=== PATIENT | male | born 1965 | race Caucasian/White ===

== ENCOUNTER 2016-09-08 00:24 | Inpatient (IN) | payer OTHER ==
[~2016-09-08] VITALS: Ht 182.9 cm; Wt 161.1 kg
[~2016-09-08 00:24] MED LIST: ALLO100T PO; ASPEC81 PO; CARV12.5 PO; CITA20TA9 PO; CITA40TA12 PO; CLC100X PO; DLD2 PO; DSY100 PO; ESOM20GR PO; GLC/500 PO; LEVO50TA PO; LISI40TA PO; MORP15TA PO; NCYSR50 PO; SIMV10TA2 PO; TADA10TA PO; TRDI30X IM; XRL10 PO; [UNRECOGNIZED DRUG - CODE] PO
[2016-09-08] MEDS ORDERED: KETOROLAC TROMETHAMINE 30 MG/ML VIAL IV STA (01:14)
[2016-09-08] MEDS ORDERED: CEFTRIAXONE SOD INJ 1 GM ADDVIAL IV STA (01:14)
[2016-09-08] MEDS ORDERED: SODIUM CHLORIDE 0.9% 1000ML 1,000 ML IV ONE (01:15)
[2016-09-08] MEDS ORDERED: TORS100T13 PO (01:48)
[2016-09-08] MEDS ORDERED: HYDR25SU20 PR (01:48)
[2016-09-08] MEDS ORDERED: GLIM1TAB2 PO (01:48)
[2016-09-08] MEDS ORDERED: LSN20 PO (01:48)
[2016-09-08] MEDS ORDERED: LEVO125T72 PO (01:48)
[2016-09-08] MEDS ORDERED: CARV25TA2 PO (01:48)
[2016-09-08] MEDS ORDERED: ATOR-54 PO (01:48)
[2016-09-08] MEDS ORDERED: CYCL10TA6 PO (01:48)
[2016-09-08] MEDS ORDERED: ESOM20CA PO (01:48)
[2016-09-08] MEDS ORDERED: BUPRTAB51 PO (01:48)
[2016-09-08] MEDS ORDERED: BUPRTAB PO (01:48)
[2016-09-08 01:49] LABS: BASO % 0.2 %; BASO ABS # 0.03 K/uL (0-0.2); COMPLETE YES; EOS % 0.1 %; IG% 0.5 %; LYMPH % 8.8 %; LYMPH ABS # 1.13 K/uL (1.2-3.4); MEAN CELL VOLUME 89.9 fL (80-100); MEAN CORPUSCULAR HEMOGLOBIN 32.4 pg (25-34); MEAN CORPUSCULAR HGB CONC 36.1 g/dl (32-36); MEAN PLATELET VOLUME 9.1 fL (7.4-10.4); MONO % 6.8 %; NEUT % 83.6 %; PLATELET COUNT 237 K/uL (130-400); RED BLOOD COUNT 3.67 M/uL (4.7-6.1)
[2016-09-08] MEDS ORDERED: VANCOMYCIN INJ 1,000 MG in SODIUM CHLORIDE 0.9% 250ML 250 ML IV STA (02:02)
[2016-09-08] MEDS ORDERED: PIPERACILLIN/TAZOBACTAM 4.5 GM/100ML D5W IV STA (02:02)
[2016-09-08 02:06] LABS: BUN/CREATININE RATIO 13.1 (10-20); CALCIUM 8.4 mg/dl (8.5-10.1); CREATININE 1.5 mg/dl (0.60-1.40); POTASSIUM 3.5 mmol/L (3.5-5.1)
[2016-09-08 02:09] LABS: ALB/GLOB RATIO 0.8 (0.9-2)
[2016-09-08 02:50] LABS: LYME DISEASE AB IGG NEG (NEG); LYME DISEASE AB IGM NEG (NEG)
[2016-09-08] MEDS ORDERED: GLUCAGON FOR INJ 1 MG VIAL SQ PRN (03:00)
[2016-09-08] MEDS ORDERED: MAGNESIUM HYDROXIDE SUSP 30 ML UDC PO PRN (03:00)
[2016-09-08] MEDS ORDERED: POLYETHYLENE (MIRALAX) 17 GM PACK PO PRN (03:00)
[2016-09-08] MEDS ORDERED: DEXTROSE 50% 50 ML SYR IV PRN (03:00)
[2016-09-08] MEDS ORDERED: ONDANSETRON INJ 2 MG/ML 2 ML VIAL IV PRN (03:00)
[2016-09-08] MEDS ORDERED: ALUMINUM/MAGNESIUM/SIMETH (MAALOX MAX) 30 ML UDC PO PRN (03:00)
[2016-09-08] MEDS ORDERED: GLUCOSE 40% GEL 15 GM TUBE PO PRN (03:00)
[2016-09-08] MEDS ORDERED: GLUCOSE 10 TABS/TUBE PO PRN (03:00)
[2016-09-08 04:20] VITALS: BP 115/73; PULSE 95; TEMP 37.2; O2SAT 96
--- NOTE | 2016-09-08 04:25 | History and Physical ---
History & Physical Date & Time of Service: Sep 08, 2016 at 04:11 Chief Complaint: Rt Leg Burning Primary Care Physician: Feliberto Modi M.D. 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 He thought nothing of it, but then later developed redness, skin tightening, swelling and worsening pain. He presented to the ER; has never had this before; no skin cuts noted by the patient; no pus drainage. States he had some diarrhea Tuesday/ Tuesday (September 05-), but now improved. No fevers/chills. No shortness of breath/ fevers. Past Medical/Surgical History Medical Problems: (1) Dyslipidemia Status: Chronic (2) Essential hypertension Status: Chronic (3) Gout Status: Chronic (4) Hypokalemia Status: Chronic (5) Hypothyroidism Status: Chronic (6) Osteoarthritis Status: Chronic (7) s/p hydrocele repair Status: Resolved (8) s/p vasectomy Status: Resolved Social History Smoking Status: Former Smoker Marital Status: Occupational Status: employed Immunizations History of Influenza Vaccine: Yes Influenza Vaccine Date: Dec 29, 2011 History of Tetanus Vaccine?: Unknown Tetanus Immunization Date: May 05, 2006 History of Pneumococcal: No History of Hepatitis B Vaccine: Unknown Multi-Drug Resistant Organisms History of MDRO: Yes Allergies Coded Allergies: Oxycodone (Verified Adverse Reaction, Unknown, nausea, 09/08/16) Home Medications Scheduled Atorvastatin (Lipitor), 20 MG PO DAILY Bupropion Hcl (Wellbutrin Xl), 150 MG PO DAILY Bupropion Hcl (Wellbutrin Xl), 300 MG PO DAILY Carvedilol (Coreg), 25 MG PO BID Citalopram Hydrobromide (Celexa), 40 MG PO DAILY Esomeprazole Magnesium (Nexium), 20 MG PO DAILY Glimepiride (Glimepiride), 1 MG PO QDB Levothyroxine Sodium (Synthroid), 125 MCG PO DAILY Lisinopril (Lisinopril), 20 MG PO DAILY Metformin Hcl (Glucophage), 500 MG PO BID Torsemide (Demadex), 100 MG PO QAM Scheduled PRN Cyclobenzaprine Hcl (Flexeril), 10 MG PO HS PRN for Muscle Spasms Hydrocortisone Acetate (Rectal (Anusol-Hc), 25 MG [place] BID PRN for Hemorrhoids Review of Systems Constitutional: No fever, No chills, No sweats, No weakness, No fatigue Respiratory: No cough, No sputum, No shortness of breath Cardiovascular: No chest pain, No edema, No palpitations Abdomen: No pain, No nausea, No vomiting, No diarrhea, No constipation, No GI bleeding Musculoskeletal: + joint pain, + muscle pain, + swelling, + calf pain (right lower extremity) Genitourinary - Male: No dysuria, No urinary frequency, No urinary urgency Neurologic: No weakness, No numbness/tingling, No balance problems Psychiatric: No depression symptoms Hematologic / Lymphatic: No abnormal bleeding/bruising Integumentary: + new/changing skin lesions Allergic / Immunologic: No environmental allergies, No seasonal allergies Physical Exam Vital Signs Date Time Temp Pulse Resp B/P (MAP) Pulse Ox O2 Delivery O2 Flow Rate FiO2 09/08/16 03:59 92 20 119/72 95 09/08/16 03:28 96 18 143/68 98 Room Air 09/08/16 02:06 96 18 122/73 95 Room Air 09/08/16 00:33 37.1 106 22 156/91 95 Room Air General Appearance: no apparent distress, + obese Head: normocephalic, atraumatic Eyes: normal inspection ENT: hearing grossly normal Respiratory/Chest: chest non-tender, lungs clear, normal breath sounds, no respiratory distress, no accessory muscle use Cardiovascular: regular rate, rhythm, no edema, no murmur Abdomen/GI: normal bowel sounds, non tender, soft Extremities/Musculoskelatal: + swelling, + pertinent finding (R lower extremity swelling; erythema below the knee to the ankle. edematous; skin tightening; mild tenderness to touch) Neurologic/Psych: no motor/sensory deficits, alert, normal mood/affect Skin: normal color Lymphatic: no adenopathy Diagnostics Laboratory Results Results Past 24 Hours Test 09/08/16 01:39 09/08/16 01:40 Range/Units Bedside Lactic Acid Venous 2.22 0.90-1.70 mmol/L White Blood Count 12.80 4.8-10.8 K/uL Red Blood Count 3.67 4.7-6.1 M/uL Hemoglobin 11.9 14.0-18.0 g/dL Hematocrit 33.0 42-52 % Mean Corpuscular Volume 89.9 80-100 fL Mean Corpuscular Hemoglobin 32.4 25-34 pg Mean Corpuscular Hemoglobin Concent 36.1 32-36 g/dl Platelet Count 237 130-400 K/uL Mean Platelet Volume 9.1 7.4-10.4 fL Neutrophils (%) (Auto) 83.6 % Lymphocytes (%) (Auto) 8.8 % Monocytes (%) (Auto) 6.8 % Eosinophils (%) (Auto) 0.1 % Basophils (%) (Auto) 0.2 % Neutrophils # (Auto) 10.69 1.4-6.5 K/uL Lymphocytes # (Auto) 1.13 1.2-3.4 K/uL Monocytes # (Auto) 0.87 0.11-0.59 K/uL Eosinophils # (Auto) 0.01 0-0.5 K/uL Basophils # (Auto) 0.03 0-0.2 K/uL RDW Standard Deviation 44.8 36.4-46.3 fL RDW Coefficient of Variation 13.6 11.5-14.5 % Immature Granulocyte % (Auto) 0.5 % Immature Granulocyte # (Auto) 0.07 0.00-0.02 K/uL Sodium Level 133 136-145 mmol/L Potassium Level 3.5 3.5-5.1 mmol/L Chloride Level 97 98-107 mmol/L Carbon Dioxide Level 26 21-32 mmol/L Anion Gap 10.0 3-11 mmol/L Blood Urea Nitrogen 20 7-18 mg/dl Creatinine 1.50 0.60-1.40 mg/dl Est Creatinine Clear Calc Drug Dose 91.0 ml/min Estimated GFR () 61.6 Estimated GFR (Non- 53.1 BUN/Creatinine Ratio 13.1 10-20 Random Glucose 200 70-99 mg/dl Calcium Level 8.4 8.5-10.1 mg/dl Total Bilirubin 0.9 0.2-1 mg/dl Aspartate Amino Transf (AST/SGOT) 32 15-37 U/L Alanine Aminotransferase (ALT/SGPT) 38 12-78 U/L Alkaline Phosphatase 61 45-117 U/L Total Protein 7.8 6.4-8.2 gm/dl Albumin 3.4 3.4-5.0 gm/dl Globulin 4.4 2.5-4.0 gm/dl Albumin/Globulin Ratio 0.8 0.9-2 Lyme Disease IgG Antibody NEG NEG Lyme Disease IgM Antibody NEG NEG Microbiology Results 09/08/16 Blood Culture, Received Pending 09/08/16 Blood Culture, Received Pending Impression Assessment and Plan This is a 51 year old obese male with a PMH of DM2, HTN, HLD, hypothyroidism, depression/anxiety presents with cellulitis Nonpurulent Cellulitis of the R LE blood cultures pending WBC slightly elevated, lactic acid > 2 IVFs Vancomycin (hx. of MRSA colonization) repeat lactic acid Acute Kidney Injury recent diarrhea; possible viral gastroenteritis creatinine up to 1.5 given 1L of IVFs NS @ 80mL/hr; monitor creat and avoid nephrotoxic agents if able DM2 hold oral agents insulin sliding scale recheck Ha1c HTN hold lisinopril due to KATI monitor blood pressure Hypothyroidism continue Synthroid DVT ppx subq heparin FULL CODE VTE Prophylaxis VTE Risk Assessment Done? Y/N: Yes Risk Level: Moderate
[2016-09-08 04:41] VITALS: BMI 47.7
[2016-09-08] MEDS ORDERED: VANCOMYCIN CONSULT ACTIVE PRN (04:45)
[2016-09-08] MEDS: SODIUM CHLORIDE 0.9% 1000ML 1,000 ML IV SCH ×2 (05:23→17:34)
[2016-09-08] MEDS ORDERED: VANCOMYCIN INJ 2,000 MG in SODIUM CHLORIDE 0.9% 500ML 500 ML IV SCH (05:30)
[2016-09-08] MEDS ORDERED: VANCOMYCIN INJ 2,800 MG in SODIUM CHLORIDE 0.9% 500ML 500 ML IV SCH (05:30)
[2016-09-08 05:47] LABS: INR 1.1 (0.9-1.1)
[2016-09-08 05:47] LABS: CREATININE 1.5 mg/dl (0.60-1.40)
[2016-09-08] MEDS: LEVOTHYROXINE 125 MCG TAB PO SCH (05:47)
--- NOTE | 2016-09-08 06:19 | EMERGENCY ROOM VISIT NOTE ---
History First contact with patient: :06 Chief Complaint: LEG PAIN,LEG INJURY Stated Complaint: CELLULITIS History of Present Illness The patient is a 51 year old male who presents to the Emergency Room with complaints of pain and swelling to his right lower leg. The patient is a diabetic and states that about 12 hours ago he had a little bit of pain in the right ankle. He states that over the past several hours the pain has developed into redness that is essentially entirety of the right lower leg between the right knee and right ankle. The patient does not have fever or chills. No chest pain, chest tightness, or shortness of breath. He does not have a history of DVT or PE. 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 He rates his discomfort a 5/10 and has not taken anything over-the- counter for his symptoms. Review of Systems More than 10 systems were reviewed and otherwise negative with the exception of history of present illness. Past Medical/Surgical History Medical Problems: (1) Cellulitis (2) Dyslipidemia (3) Essential hypertension (4) Gout (5) Hypokalemia (6) Hypothyroidism (7) Osteoarthritis (8) s/p hydrocele repair (9) s/p vasectomy Family History No pertinent family history Social History Smoking Status: Former Smoker Marital Status: Housing Status: lives with family Occupation Status: employed Current/Historical Medications Scheduled Atorvastatin (Lipitor), 20 MG PO DAILY Bupropion Hcl (Wellbutrin Xl), 150 MG PO DAILY Bupropion Hcl (Wellbutrin Xl), 300 MG PO DAILY Carvedilol (Coreg), 25 MG PO BID Citalopram Hydrobromide (Celexa), 40 MG PO DAILY Esomeprazole Magnesium (Nexium), 20 MG PO DAILY Glimepiride (Glimepiride), 1 MG PO QDB Levothyroxine Sodium (Synthroid), 125 MCG PO DAILY Lisinopril (Lisinopril), 20 MG PO DAILY Metformin Hcl (Glucophage), 500 MG PO BID Torsemide (Demadex), 100 MG PO QAM Scheduled PRN Cyclobenzaprine Hcl (Flexeril), 10 MG PO HS PRN for Muscle Spasms Hydrocortisone Acetate (Rectal (Anusol-Hc), 25 MG [place] BID PRN for Hemorrhoids Allergies Coded Allergies: Oxycodone (Verified Adverse Reaction, Unknown, nausea, 09/08/16) Physical Exam Vital Signs Date Time Temp Pulse Resp B/P (MAP) Pulse Ox O2 Delivery O2 Flow Rate FiO2 09/08/16 02:06 96 18 122/73 95 Room Air 09/08/16 00:33 37.1 106 22 156/91 95 Room Air Pain Rating (0-10): 6.0 Physical Exam VITALS: Vitals are noted on the nurse's note and reviewed by myself. Vital signs with tachycardia GENERAL: Well-developed, well-nourished, white male, who is in no acute distress and resting comfortably. Patient is cooperative with the examination. HEAD: Normocephalic atraumatic. HEART: Tachycardic rate and regular rhythm without murmurs gallops or rubs. LUNGS: Clear to auscultation bilaterally without wheezes, rales or rhonchi. No retractions or accessory muscle use. MUSCULOSKELETAL: Erythema and edema appreciated to the right lower extremity between the right knee and the right ankle. Clinically this is consistent with a cellulitis. There are no ulcerations or evidence of abscess. No palpable cords. Neurovascular status is intact distally. NEURO: Patient was alert and oriented to person place and time. CN II through XII grossly intact. Medical Decision & Procedures ER Provider Diagnostic Interpretation: Preliminary Findings Only See Final Report For Complete Findings US VENOUS RIGHT LOWER EXTREMITY: No evidence of deep vein thrombosis. Laboratory Results 09/08/16 01:40 Red Blood Count 3.67, Mean Corpuscular Volume 89.9, Mean Corpuscular Hemoglobin 32.4, Mean Corpuscular Hemoglobin Concent 36.1, Mean Platelet Volume 9.1, Neutrophils (%) (Auto) 83.6, Lymphocytes (%) (Auto) 8.8, Monocytes (%) (Auto) 6.8, Eosinophils (%) (Auto) 0.1, Basophils (%) (Auto) 0.2, Neutrophils # (Auto) 10.69, Lymphocytes # (Auto) 1.13, Monocytes # (Auto) 0.87, Eosinophils # (Auto) 0.01, Basophils # (Auto) 0.03 09/08/16 01:40 Test 09/08/16 01:39 09/08/16 01:40 Bedside Lactic Acid Venous 2.22 mmol/L (0.90-1.70) White Blood Count 12.80 K/uL (4.8-10.8) Red Blood Count 3.67 M/uL (4.7-6.1) Hemoglobin 11.9 g/dL (14.0-18.0) Hematocrit 33.0 % (42-52) Mean Corpuscular Volume 89.9 fL (80-100) Mean Corpuscular Hemoglobin 32.4 pg (25-34) Mean Corpuscular Hemoglobin Concent 36.1 g/dl (32-36) Platelet Count 237 K/uL (130-400) Mean Platelet Volume 9.1 fL (7.4-10.4) Neutrophils (%) (Auto) 83.6 % Lymphocytes (%) (Auto) 8.8 % Monocytes (%) (Auto) 6.8 % Eosinophils (%) (Auto) 0.1 % Basophils (%) (Auto) 0.2 % Neutrophils # (Auto) 10.69 K/uL (1.4-6.5) Lymphocytes # (Auto) 1.13 K/uL (1.2-3.4) Monocytes # (Auto) 0.87 K/uL (0.11-0.59) Eosinophils # (Auto) 0.01 K/uL (0-0.5) Basophils # (Auto) 0.03 K/uL (0-0.2) RDW Standard Deviation 44.8 fL (36.4-46.3) RDW Coefficient of Variation 13.6 % (11.5-14.5) Immature Granulocyte % (Auto) 0.5 % Immature Granulocyte # (Auto) 0.07 K/uL (0.00-0.02) Anion Gap 10.0 mmol/L (3-11) BUN/Creatinine Ratio 13.1 (10-20) Calcium Level 8.4 mg/dl (8.5-10.1) Total Bilirubin 0.9 mg/dl (0.2-1) Aspartate Amino Transf (AST/SGOT) 32 U/L (15-37) Alanine Aminotransferase (ALT/SGPT) 38 U/L (12-78) Alkaline Phosphatase 61 U/L (45-117) Total Protein 7.8 gm/dl (6.4-8.2) Albumin 3.4 gm/dl (3.4-5.0) Globulin 4.4 gm/dl (2.5-4.0) Albumin/Globulin Ratio 0.8 (0.9-2) Lyme Disease IgG Antibody NEG (NEG) Lyme Disease IgM Antibody NEG (NEG) Medications Administered Medications (Trade) Dose Ordered Sig/Yuliana Route Start Time Stop Time Status Last Admin Dose Admin Ceftriaxone Sodium (Rocephin Inj) 1 gm NOW STAT IV 09/08/16 01:14 09/08/16 01:17 DC 09/08/16 02:00 1 GM Sodium Chloride 1,000 ml @ 999 mls/hr Q1H1M ONCE IV 09/08/16 01:15 09/08/16 02:15 DC 09/08/16 02:01 999 MLS/HR Ketorolac Tromethamine (Toradol Inj) 30 mg NOW STAT IV 09/08/16 01:14 09/08/16 01:17 DC 09/08/16 02:00 30 MG Piperacillin Sod/ Tazobactam Sod (Zosyn Iv) 4.5 gm NOW STAT IV 09/08/16 02:02 09/08/16 02:03 DC 09/08/16 03:17 4.5 GM Vancomycin HCl 1000 mg/Sodium Chloride 270 ml @ 125 mls/hr NOW STAT IV 09/08/16 02:02 09/08/16 04:11 DC 09/08/16 03:21 125 MLS/HR ED Course Physical exam and history were performed. Nursing notes and EMR were reviewed. Patient appears to have a cellulitis of his right lower extremity prompting him to come to the emergency department this evening. IV access was established and labs were obtained. The patient was empirically started on Rocephin here in the department. The patient's blood work is as above and was reviewed. He does have an elevated white blood cell count greater than 12,000. His lactic acid is also elevated. The patient remained with some tachycardia, and there is considerable concern for sepsis. Blood cultures have been obtained and are pending at time of this dictation. The patient was given Zosyn and vancomycin here in the department. An ultrasound was performed and does not show evidence of DVT. Overall the patient does not appear stable for discharge home. The case was discussed with the on-call [facility] hospitalist who agreed to evaluate the patient here in the department for further care and management. Please see their dictation for further patient course, plan, and disposition. The chart was completed utilizing [employer] Speech Voice Recognition Software. Grammatical errors, random word insertions, pronoun errors, and incomplete sentences are an occasional consequence of this system due to software limitations, ambient noise, and hardware issues. Any formal questions or concerns about the content, text, or information contained within the body of this dictation should be directly addressed to the provider for clarification. . Medical Decision Differential diagnosis: Etiologies such as sepsis, UTI, pneumonia, metabolic, electrolyte abnormalities , cardiac sources, intracerebral event, toxicologic, neurologic, as well as others were entertained. Impression Primary Impression: Sepsis Additional Impression: Cellulitis Departure Information Dispostion Still a Patient Condition FAIR Referrals Feliberto Modi M.D. (PCP) Forms HOME CARE DOCUMENTATION FORM, IMPORTANT VISIT INFORMATION Patient Instructions [facility] Problem Qualifiers
--- NOTE | 2016-09-08 06:36 | DIAGNOSTIC IMAGING REPORT ---
ULTRASOUND RIGHT VENOUS DOPP LOWER EXT UNILAT CLINICAL HISTORY: Right lower extremity edema COMPARISON STUDY: 04/02/2012 FINDINGS: Real-time and color flow Doppler imaging were performed. Flow was seen within the femoral, popliteal and calf veins with no intraluminal thrombus demonstrated. The saphenous vein is patent. IMPRESSION: No evidence of right lower extremity DVT. Electronically signed by: Ray Brush M.D. 09/08/2016 6:35 AM Dictated Date/Time: 09/08/2016 6:35 AM
[2016-09-08 07:39] VITALS: BP 125/78; PULSE 90; TEMP 37; O2SAT 97
[2016-09-08 07:45] VITALS: BP 125/78; PULSE 90; TEMP 37; O2SAT 97
[2016-09-08] MEDS ORDERED: PNEUMOCOCCAL POLYSACCHARIDES 25 MCG/0.5 ML VIAL/SYR IM. ONE (08:00)
[2016-09-08] MEDS ORDERED: PNEUMOCOCCAL ADMINISTRATION CHARGE ONE (08:00)
[2016-09-08] MEDS: BuPROPion XL 300 MG TABCR PO SCH (08:39)
[2016-09-08] MEDS: CARVEDILOL 25 MG TAB PO SCH ×2 (08:40→20:22)
[2016-09-08] MEDS: ATORVASTATIN 20 MG TAB PO SCH (08:40)
[2016-09-08] MEDS: BuPROPion XL 150 MG TABCR PO SCH (08:40)
[2016-09-08] MEDS: PANTOprazole SOD 40 MG TAB PO SCH (08:41)
[2016-09-08] MEDS: CITALOPRAM 40 MG TAB PO SCH (08:41)
[2016-09-08] MEDS: INSULIN ASPART 100 UNITS/ML 3 ML PEN SC SCH ×4 (08:50→20:24)
[2016-09-08] MEDS: HEPARIN SOD 5000 UNIT/0.5 ML CARP SQ SCH ×3 (08:51→21:58)
--- NOTE | 2016-09-08 12:28 | Pharmacy Progress Note ---
Pharmacy Abx Initial Consult Date of Service Sep 08, 2016. Pharmacy Dosing Scope Date of Consult: 09/08/16 Consultation requested by: Dr. Shaw Pharmacy is consulted to initiate Vancomycin IV dosing therapy, order appropriate labs and adjust drug dose/frequency. Subjective The patient is a 51 year old male admitted on Sep 08, 2016 at 02:57. Objective Height (Feet): 6 Height (Inches): 0.00 Weight (Kilograms): 159.500 Vital Signs (Past 12Hrs) Vital Signs Past 12 Hours Date Time Temp Pulse Resp B/P (MAP) Pulse Ox O2 Delivery O2 Flow Rate FiO2 09/08/16 08:50 Room Air 09/08/16 07:45 37.0 90 16 125/78 (94) 97 09/08/16 07:39 37.0 90 16 125/78 (94) 97 09/08/16 04:41 Room Air 09/08/16 04:20 37.2 95 16 115/73 (87) 96 Room Air 09/08/16 03:59 92 20 119/72 95 09/08/16 03:28 96 18 143/68 98 Room Air 09/08/16 02:06 96 18 122/73 95 Room Air 09/08/16 00:33 37.1 106 22 156/91 95 Room Air Lab Results (24Hrs) Laboratory Tests (24 Hours) Test 09/08/16 01:40 09/08/16 05:08 White Blood Count 12.80 K/uL (4.8-10.8) H Red Blood Count 3.67 M/uL (4.7-6.1) L Hemoglobin 11.9 g/dL (14.0-18.0) L Hematocrit 33.0 % (42-52) L Mean Corpuscular Volume 89.9 fL (80-100) Mean Corpuscular Hemoglobin 32.4 pg (25-34) Mean Corpuscular Hemoglobin Concent 36.1 g/dl (32-36) H Platelet Count 237 K/uL (130-400) Mean Platelet Volume 9.1 fL (7.4-10.4) Neutrophils (%) (Auto) 83.6 % Lymphocytes (%) (Auto) 8.8 % Monocytes (%) (Auto) 6.8 % Eosinophils (%) (Auto) 0.1 % Basophils (%) (Auto) 0.2 % Neutrophils # (Auto) 10.69 K/uL (1.4-6.5) H Lymphocytes # (Auto) 1.13 K/uL (1.2-3.4) L Monocytes # (Auto) 0.87 K/uL (0.11-0.59) H Eosinophils # (Auto) 0.01 K/uL (0-0.5) Basophils # (Auto) 0.03 K/uL (0-0.2) Lactic Acid Level 1.7 mmol/L (0.4-2.0) Micro Results Date/Time Source Procedure Growth Status 09/08/16 01:40 Blood Blood Culture Pending Received 09/08/16 01:30 Blood Blood Culture Pending Received Risk Factors for Resistance * History of MRSA colonization. Assessment & Plan Assessment 51 year old male with Cellulitis in RLE. Plan Vancomycin for treatment of Cellulitis. Vancomycin IV * Loading dose: Total of 3000 mg given in two doses (18.8 mg/kg) * Maintenance dose: 2000 mg IV (12.5 mg/kg) every 12 hours * Estimated P'kinetics: t1/2 = 9 hrs, Ke = 0.077 /hr. * Goal trough level for Cellulitis: 12-17 mcg/mL * Trough Vanco level ordered for 09/09 @ 1800 * A less than traditional dose have been selected due to likelihood of drug accumulation in obese patient. Pharmacy will continue to follow and will adjust dose/frequency as necessary. Thank you.
[2016-09-08 15:50] VITALS: BP 143/87; PULSE 94; TEMP 37.1; O2SAT 93
[2016-09-08] MEDS: VANCOMYCIN INJ 2,000 MG in SODIUM CHLORIDE 0.9% 500ML 500 ML IV SCH (17:34)
--- NOTE | 2016-09-08 18:23 | Progress Note ---
Medicine Progress Note Date & Time of Visit: Sep 08, 2016 at 18:15. Subjective Patient reports feeling better, still has RLE pain/erythema/edema, but feels his skin feels less tight than yesterday. No other complaints. Denies any CP, SOB, N/V, TOBIN, dizziness. No overnight events noted. Objective Last 8 Hrs Date Time Temp Pulse Resp B/P (MAP) Pulse Ox O2 Delivery O2 Flow Rate FiO2 09/08/16 15:50 37.1 94 18 143/87 (105) 93 Room Air 09/08/16 15:14 Room Air Physical Exam: GENERAL: Patient is in no acute distress. HEENT: No acute trauma, normocephalic, mucous membranes moist, no nasal congestion, no scleral icterus. NECK: No stridor, trachea is midline. LUNGS: Clear to auscultation bilaterally, no wheeze, no rhonchi, breath sounds equal. HEART: Without murmurs gallops or rubs, regular rate and rhythm. ABDOMEN: Soft, nontender, bowel sounds positive EXTREMITIES: No cyanosis; RLE erythematous, warm, tender, + edema in both LE, R> L NEUROLOGIC: Oriented x 3, no acute motor or sensory deficits, no focal weakness. SKIN: No rash, no jaundice, no diaphoresis. Laboratory Results: Last 24 Hours Test 09/08/16 01:39 09/08/16 01:40 09/08/16 05:08 09/08/16 05:23 Bedside Lactic Acid Venous 2.22 mmol/L White Blood Count 12.80 K/uL Red Blood Count 3.67 M/uL Hemoglobin 11.9 g/dL Hematocrit 33.0 % Mean Corpuscular Volume 89.9 fL Mean Corpuscular Hemoglobin 32.4 pg Mean Corpuscular Hemoglobin Concent 36.1 g/dl Platelet Count 237 K/uL Mean Platelet Volume 9.1 fL Neutrophils (%) (Auto) 83.6 % Lymphocytes (%) (Auto) 8.8 % Monocytes (%) (Auto) 6.8 % Eosinophils (%) (Auto) 0.1 % Basophils (%) (Auto) 0.2 % Neutrophils # (Auto) 10.69 K/uL Lymphocytes # (Auto) 1.13 K/uL Monocytes # (Auto) 0.87 K/uL Eosinophils # (Auto) 0.01 K/uL Basophils # (Auto) 0.03 K/uL RDW Standard Deviation 44.8 fL RDW Coefficient of Variation 13.6 % Immature Granulocyte % (Auto) 0.5 % Immature Granulocyte # (Auto) 0.07 K/uL Sodium Level 133 mmol/L Potassium Level 3.5 mmol/L Chloride Level 97 mmol/L Carbon Dioxide Level 26 mmol/L Anion Gap 10.0 mmol/L Blood Urea Nitrogen 20 mg/dl Creatinine 1.50 mg/dl 1.50 mg/dl Est Creatinine Clear Calc Drug Dose 91.0 ml/min 91.0 ml/min Estimated GFR () 61.6 61.6 Estimated GFR (Non- 53.1 53.1 BUN/Creatinine Ratio 13.1 Random Glucose 200 mg/dl Calcium Level 8.4 mg/dl Total Bilirubin 0.9 mg/dl Aspartate Amino Transf (AST/SGOT) 32 U/L Alanine Aminotransferase (ALT/SGPT) 38 U/L Alkaline Phosphatase 61 U/L Total Protein 7.8 gm/dl Albumin 3.4 gm/dl Globulin 4.4 gm/dl Albumin/Globulin Ratio 0.8 Lyme Disease IgG Antibody NEG Lyme Disease IgM Antibody NEG Lactic Acid Level 1.7 mmol/L Prothrombin Time 12.0 SECONDS Prothromb Time International Ratio 1.1 Test 09/08/16 07:57 09/08/16 11:37 09/08/16 16:40 Bedside Glucose 230 mg/dl 224 mg/dl 215 mg/dl Date/Time Source Procedure Growth Status 09/08/16 01:40 Blood Blood Culture Pending Received 09/08/16 01:30 Blood Blood Culture Pending Received Assessment & Plan See H&P from this AM for more details RLE Nonpurulent Cellulitis: -patient nasal MRSA positive -continued on Vancomycin -elevate RLE when at rest -per patient, the edema is improving -can likely D/C IV fluids if PO intake adequate -BP and renal function stable/improved KATI -recent diarrhea; possible viral gastroenteritis -creatinine up to 1.5 -continue IV fluids -avoid nephrotoxic agents DM Type II: -hold oral meds -insulin sliding scale while inpt -check HbA1c HTN: -held lisinopril due to KATI -monitor BP Hypothyroidism: -continue Synthroid DVT Prophylaxis: -on subcutaneous heparin Current Inpatient Medications: Current Inpatient Medications Medications (Trade) Dose Ordered Sig/Yuliana Route Start Time Stop Time Status Last Admin Dose Admin Heparin Sodium (Porcine) (Heparin Sq 5000 Unit/0.5ml) 5,000 unit Q8H SQ 09/08/16 06:00 10/08/16 05:59 09/08/16 16:43 5,000 UNIT Acetaminophen (Tylenol Tab) 650 mg Q4H PRN PO 09/08/16 03:00 10/08/16 02:59 Al Hydrox/Mg Hydrox/Simethicone (Maalox Max Susp) 15 ml Q4H PRN PO 09/08/16 03:00 10/08/16 02:59 Magnesium Hydroxide (Milk Of Magnesia Susp) 30 ml Q6H PRN PO 09/08/16 03:00 10/08/16 02:59 Polyethylene (Miralax Powder Packet) 17 gm DAILY PRN PO 09/08/16 03:00 10/08/16 02:59 Ondansetron HCl (Zofran Inj) 4 mg Q6H PRN IV 09/08/16 03:00 10/08/16 02:59 Insulin Aspart (novoLOG ASPART) SLIDING SCALE If C... ACHS SC 09/08/16 06:30 10/08/16 06:59 09/08/16 17:43 4 UNITS Glucose (Glucose 40% Gel) 15-30 GRAMS 15 GRAMS... UD PRN PO 09/08/16 03:00 10/08/16 02:59 Glucose (Glucose Chew Tab) 4-8 Tablets 4 Tabl... UD PRN PO 09/08/16 03:00 10/08/16 02:59 Dextrose (Dextrose 50% 50ML Syringe) 25-50ML OF 50% DW IV FOR... UD PRN IV 09/08/16 03:00 10/08/16 02:59 Glucagon (Glucagon Inj) 1 mg UD PRN SQ 09/08/16 03:00 10/08/16 02:59 Atorvastatin Calcium (Lipitor Tab) 20 mg DAILY PO 09/08/16 08:00 10/08/16 08:59 09/08/16 08:40 20 MG Bupropion HCl (Wellbutrin-Xl Tab) 150 mg DAILY PO 09/08/16 08:00 10/08/16 08:59 09/08/16 08:40 150 MG Bupropion HCl (Wellbutrin-Xl Tab) 300 mg DAILY PO 09/08/16 08:00 10/08/16 08:59 09/08/16 08:39 300 MG Carvedilol (Coreg Tab) 25 mg BID PO 09/08/16 08:00 10/08/16 08:59 09/08/16 08:40 25 MG Citalopram Hydrobromide (celeXA TAB) 40 mg DAILY PO 09/08/16 08:00 10/08/16 08:59 09/08/16 08:41 40 MG Levothyroxine Sodium (Synthroid Tab) 125 mcg DAILYBB PO 09/08/16 06:30 10/08/16 06:29 09/08/16 05:47 125 MCG Pantoprazole Sodium (Protonix Tab) 40 mg QAM PO 09/08/16 08:00 10/08/16 07:59 09/08/16 08:41 40 MG Sodium Chloride 1,000 ml @ 80 mls/hr [id number] IV 09/08/16 05:00 10/08/16 04:59 09/08/16 17:34 80 MLS/HR Vancomycin HCl (Consult) 1 ea UD PRN N/A 09/08/16 04:45 10/08/16 04:44 Vancomycin HCl 2000 mg/Sodium Chloride 540 ml @ 200 mls/hr Q12H IV 09/08/16 18:00 09/18/16 17:59 09/08/16 17:34 200 MLS/HR
[2016-09-08] MEDS ORDERED: KETOROLAC TROMETHAMINE 15 MG/ML VIAL IV ONE (19:45)
[2016-09-08 20:20] VITALS: BP 161/72; PULSE 93
[2016-09-08 23:20] VITALS: BP 132/82; PULSE 79; TEMP 36.9; O2SAT 93
[2016-09-09] MEDS: LEVOTHYROXINE 125 MCG TAB PO SCH (06:12)
[2016-09-09] MEDS: VANCOMYCIN INJ 2,000 MG in SODIUM CHLORIDE 0.9% 500ML 500 ML IV SCH ×2 (06:18→18:08)
[2016-09-09] MEDS: SODIUM CHLORIDE 0.9% 1000ML 1,000 ML IV SCH (06:19)
[2016-09-09] MEDS: HEPARIN SOD 5000 UNIT/0.5 ML CARP SQ SCH ×3 (06:19→21:28)
[2016-09-09 06:40] LABS: HEMATOCRIT 29.6 % (42-52); MEAN CELL VOLUME 90.2 fL (80-100); MEAN CORPUSCULAR HEMOGLOBIN 31.7 pg (25-34); MEAN CORPUSCULAR HGB CONC 35.1 g/dl (32-36); MEAN PLATELET VOLUME 9.2 fL (7.4-10.4); PLATELET COUNT 200 K/uL (130-400); RED BLOOD COUNT 3.28 M/uL (4.7-6.1); WHITE BLOOD COUNT 7.01 K/uL (4.8-10.8)
[2016-09-09 07:06] LABS: ESTIMATED AVERAGE GLUCOSE 160 mg/dl; HA1C FLAG Normal (Normal)
[2016-09-09 07:08] LABS: BUN/CREATININE RATIO 15.2 (10-20); CALCIUM 8.1 mg/dl (8.5-10.1); CREATININE 1.2 mg/dl (0.60-1.40); POTASSIUM 3.7 mmol/L (3.5-5.1)
[2016-09-09 08:01] VITALS: BP 131/78; PULSE 89; TEMP 37.1; O2SAT 99
[2016-09-09 08:23] VITALS: BP 143/88; PULSE 91
[2016-09-09] MEDS: CARVEDILOL 25 MG TAB PO SCH ×2 (08:24→19:34)
[2016-09-09] MEDS: ATORVASTATIN 20 MG TAB PO SCH (08:24)
[2016-09-09] MEDS: BuPROPion XL 150 MG TABCR PO SCH (08:24)
[2016-09-09] MEDS: PANTOprazole SOD 40 MG TAB PO SCH (08:24)
[2016-09-09] MEDS: CITALOPRAM 40 MG TAB PO SCH (08:24)
[2016-09-09] MEDS: BuPROPion XL 300 MG TABCR PO SCH (08:24)
[2016-09-09] MEDS: INSULIN ASPART 100 UNITS/ML 3 ML PEN SC SCH ×4 (08:29→21:28)
[2016-09-09] MEDS: ACETAMINOPHEN 325 MG TAB PO PRN ×2 (10:24→16:11)
[2016-09-09] MEDS: TRAMADOL HCL 50 MG TAB PO PRN ×3 (13:14→22:22)
[2016-09-09 15:29] VITALS: BP 135/88; PULSE 84; TEMP 37; O2SAT 96
[2016-09-09] MEDS ORDERED: VANCOMYCIN TROUGH SCH (17:30)
--- NOTE | 2016-09-09 17:42 | DIAGNOSTIC IMAGING REPORT ---
ULTRASOUND LEFT VENOUS DOPP LOWER EXT UNILAT CLINICAL HISTORY: Left leg pain and swelling COMPARISON STUDY: 04/02/2012 FINDINGS: Real-time and color flow Doppler imaging were performed. Flow was seen within the femoral, popliteal and calf veins with no intraluminal thrombus demonstrated. The saphenous vein is patent. There is prominent pulsatility within the left common femoral vein. This could indicate elevated right heart pressures. IMPRESSION: No evidence of left lower extremity DVT. Electronically signed by: Ray Brush M.D. 09/09/2016 5:41 PM Dictated Date/Time: 09/09/2016 5:40 PM
--- NOTE | 2016-09-09 18:21 | Progress Note ---
Medicine Progress Note Date & Time of Visit: Sep 09, 2016 at 18:21. Subjective Patient denies any new complaints. Said he felt "uneasy" and "strange" earlier but cannot elaborate further. Denies any CP, SOB, palpitations, N/V/D, TOBIN, dizziness or lightheadedness. No overnight events noted. Tolerating PO. RLE pain and redness are slightly better, but not to a significant degree. Objective Last 8 Hrs Date Time Temp Pulse Resp B/P (MAP) Pulse Ox O2 Delivery O2 Flow Rate FiO2 09/09/16 16:00 Room Air 09/09/16 15:29 37.0 84 18 135/88 (104) 96 Room Air Physical Exam: GENERAL: Patient is in no acute distress. HEENT: No acute trauma, normocephalic, mucous membranes moist, no nasal congestion, no scleral icterus. NECK: No stridor, trachea is midline. LUNGS: Clear to auscultation bilaterally, no wheeze, no rhonchi, breath sounds equal. HEART: Without murmurs gallops or rubs, regular rate and rhythm. ABDOMEN: Soft, nontender, bowel sounds positive EXTREMITIES: No cyanosis; RLE erythematous, warm, tender, + edema in both LE, R> L NEUROLOGIC: Oriented x 3, no acute motor or sensory deficits, no focal weakness. SKIN: No rash, no jaundice, no diaphoresis. Laboratory Results: Last 24 Hours Test 09/08/16 20:09 09/09/16 05:31 09/09/16 07:49 09/09/16 11:46 Bedside Glucose 230 mg/dl 190 mg/dl 196 mg/dl White Blood Count 7.01 K/uL Red Blood Count 3.28 M/uL Hemoglobin 10.4 g/dL Hematocrit 29.6 % Mean Corpuscular Volume 90.2 fL Mean Corpuscular Hemoglobin 31.7 pg Mean Corpuscular Hemoglobin Concent 35.1 g/dl RDW Standard Deviation 45.4 fL RDW Coefficient of Variation 13.7 % Platelet Count 200 K/uL Mean Platelet Volume 9.2 fL Sodium Level 136 mmol/L Potassium Level 3.7 mmol/L Chloride Level 102 mmol/L Carbon Dioxide Level 27 mmol/L Anion Gap 7.0 mmol/L Blood Urea Nitrogen 18 mg/dl Creatinine 1.20 mg/dl Est Creatinine Clear Calc Drug Dose 113.7 ml/min Estimated GFR () 80.7 Estimated GFR (Non- 69.6 BUN/Creatinine Ratio 15.2 Random Glucose 209 mg/dl Estimated Average Glucose 160 mg/dl Hemoglobin A1c 7.2 % Calcium Level 8.1 mg/dl Test 09/09/16 16:40 09/09/16 17:50 Bedside Glucose 190 mg/dl Assessment & Plan RLE Nonpurulent Cellulitis: -patient nasal MRSA positive -continued on Vancomycin day# 2 -elevate RLE when at rest -per patient, the edema is improving -can likely D/C IV fluids if PO intake adequate -BP and renal function stable/improved -B/L LE dopplers are negative KATI -recent diarrhea; possible viral gastroenteritis -creatinine was up to 1.5-->1.2 -on IV fluids; will stop as patient is taking in PO and has no diarrhea -avoid nephrotoxic agents DM Type II: -hold oral meds -insulin sliding scale while inpt -HbA1c: 7.2% HTN: -held lisinopril due to KATI -monitor BP Hypothyroidism: -continue Synthroid DVT Prophylaxis: -on subcutaneous heparin Current Inpatient Medications: Current Inpatient Medications Medications (Trade) Dose Ordered Sig/Yuliana Route Start Time Stop Time Status Last Admin Dose Admin Heparin Sodium (Porcine) (Heparin Sq 5000 Unit/0.5ml) 5,000 unit Q8H SQ 09/08/16 06:00 10/08/16 05:59 09/09/16 13:36 5,000 UNIT Acetaminophen (Tylenol Tab) 650 mg Q4H PRN PO 09/08/16 03:00 10/08/16 02:59 09/09/16 16:11 650 MG Al Hydrox/Mg Hydrox/Simethicone (Maalox Max Susp) 15 ml Q4H PRN PO 09/08/16 03:00 10/08/16 02:59 Magnesium Hydroxide (Milk Of Magnesia Susp) 30 ml Q6H PRN PO 09/08/16 03:00 10/08/16 02:59 Polyethylene (Miralax Powder Packet) 17 gm DAILY PRN PO 09/08/16 03:00 10/08/16 02:59 Ondansetron HCl (Zofran Inj) 4 mg Q6H PRN IV 09/08/16 03:00 10/08/16 02:59 Insulin Aspart (novoLOG ASPART) SLIDING SCALE If C... ACHS SC 09/08/16 06:30 10/08/16 06:59 09/09/16 12:21 3 UNITS Glucose (Glucose 40% Gel) 15-30 GRAMS 15 GRAMS... UD PRN PO 09/08/16 03:00 10/08/16 02:59 Glucose (Glucose Chew Tab) 4-8 Tablets 4 Tabl... UD PRN PO 09/08/16 03:00 10/08/16 02:59 Dextrose (Dextrose 50% 50ML Syringe) 25-50ML OF 50% DW IV FOR... UD PRN IV 09/08/16 03:00 10/08/16 02:59 Glucagon (Glucagon Inj) 1 mg UD PRN SQ 09/08/16 03:00 10/08/16 02:59 Atorvastatin Calcium (Lipitor Tab) 20 mg DAILY PO 09/08/16 08:00 10/08/16 08:59 09/09/16 08:24 20 MG Bupropion HCl (Wellbutrin-Xl Tab) 150 mg DAILY PO 09/08/16 08:00 10/08/16 08:59 09/09/16 08:24 150 MG Bupropion HCl (Wellbutrin-Xl Tab) 300 mg DAILY PO 09/08/16 08:00 10/08/16 08:59 09/09/16 08:24 300 MG Carvedilol (Coreg Tab) 25 mg BID PO 09/08/16 08:00 10/08/16 08:59 09/09/16 08:24 25 MG Citalopram Hydrobromide (celeXA TAB) 40 mg DAILY PO 09/08/16 08:00 10/08/16 08:59 09/09/16 08:24 40 MG Levothyroxine Sodium (Synthroid Tab) 125 mcg DAILYBB PO 09/08/16 06:30 10/08/16 06:29 09/09/16 06:12 125 MCG Pantoprazole Sodium (Protonix Tab) 40 mg QAM PO 09/08/16 08:00 10/08/16 07:59 09/09/16 08:24 40 MG Vancomycin HCl (Consult) 1 ea UD PRN N/A 09/08/16 04:45 10/08/16 04:44 Vancomycin HCl 2000 mg/Sodium Chloride 540 ml @ 200 mls/hr Q12H IV 09/08/16 18:00 09/18/16 17:59 09/09/16 18:08 200 MLS/HR Tramadol HCl (Ultram Tab) 50 mg Q4H PRN PO 09/09/16 12:15 10/09/16 12:14 09/09/16 18:07 50 MG
[2016-09-09] MEDS ORDERED: FUROSEMIDE INJ 20 MG in SYRINGE 0 ML IV ONE (19:00)
[2016-09-09 19:32] VITALS: BP 142/82; PULSE 89; O2SAT 95
--- NOTE | 2016-09-09 21:04 | Pharmacy Progress Note ---
Pharmacy Abx Dose Progress Nt Date of Service Sep 09, 2016. Pharmacy Dosing Scope The patient is currently receiving the following antimicrobial agents per Pharmacy consult: Vancomycin 2000 mg IV every 12 hours Objective Height (Feet): 6 Height (Inches): 0.00 Weight (Kilograms): 159.500 Vital Signs (Past 12Hrs) Vital Signs Past 12 Hours Date Time Temp Pulse Resp B/P (MAP) Pulse Ox O2 Delivery O2 Flow Rate FiO2 09/09/16 19:32 89 142/82 (102) 95 Room Air 09/09/16 16:00 Room Air 09/09/16 15:29 37.0 84 18 135/88 (104) 96 Room Air Lab Results (24Hrs) Laboratory Tests (24 Hours) Test 09/09/16 05:31 White Blood Count 7.01 K/uL (4.8-10.8) Micro Results Date/Time Source Procedure Growth Status 09/08/16 01:40 Blood Blood Culture - Preliminary NO GROWTH TO DATE. Resulted 09/08/16 01:30 Blood Blood Culture - Preliminary NO GROWTH TO DATE. 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 Will likely need to decrease interval if patient is therapeutic in anticipation of accumulation in obese patient. * Goal trough level for Cellulitis : ~15 mcg/mL * Trough level ordered for: 09/10/16 prior to 1800 dose * Less than traditional dose of 12.5mg/kg selected due to likelihood of drug accumulation in obese patient (BMI 47.7kg/m2) Pharmacy will continue to follow and will adjust dose/frequency as necessary. Thank you.
[2016-09-09 23:08] VITALS: BP 125/86; PULSE 83; TEMP 37.2; O2SAT 98
[2016-09-10] MEDS: VANCOMYCIN INJ 2,000 MG in SODIUM CHLORIDE 0.9% 500ML 500 ML IV SCH ×2 (02:05→09:38)
[2016-09-10] MEDS: TRAMADOL HCL 50 MG TAB PO PRN ×2 (04:21→13:10)
[2016-09-10] MEDS: LEVOTHYROXINE 125 MCG TAB PO SCH (06:03)
[2016-09-10] MEDS: HEPARIN SOD 5000 UNIT/0.5 ML CARP SQ SCH ×3 (06:05→19:58)
[2016-09-10 06:57] LABS: HEMATOCRIT 30.5 % (42-52); MEAN CELL VOLUME 89.4 fL (80-100); MEAN CORPUSCULAR HEMOGLOBIN 30.2 pg (25-34); MEAN CORPUSCULAR HGB CONC 33.8 g/dl (32-36); MEAN PLATELET VOLUME 8.9 fL (7.4-10.4); PLATELET COUNT 243 K/uL (130-400); RED BLOOD COUNT 3.41 M/uL (4.7-6.1)
[2016-09-10 07:20] LABS: BUN/CREATININE RATIO 12.1 (10-20); CALCIUM 8.1 mg/dl (8.5-10.1); CREATININE 1.2 mg/dl (0.60-1.40); POTASSIUM 3.8 mmol/L (3.5-5.1)
[2016-09-10 07:28] VITALS: BP 133/98; PULSE 91; TEMP 36.7; O2SAT 96
[2016-09-10 07:31] LABS: FERRITIN 1246.8 ng/ml (8.0-388.0); THYROID STIMULATING HORMONE 3.52 uIu/ml (0.300-4.500)
[2016-09-10] MEDS: CARVEDILOL 25 MG TAB PO SCH ×2 (08:02→19:56)
[2016-09-10] MEDS: CITALOPRAM 40 MG TAB PO SCH (08:02)
[2016-09-10] MEDS: ATORVASTATIN 20 MG TAB PO SCH (08:03)
[2016-09-10] MEDS: PANTOprazole SOD 40 MG TAB PO SCH (08:03)
[2016-09-10] MEDS: BuPROPion XL 150 MG TABCR PO SCH (08:03)
[2016-09-10] MEDS: BuPROPion XL 300 MG TABCR PO SCH (08:04)
[2016-09-10] MEDS: INSULIN ASPART 100 UNITS/ML 3 ML PEN SC SCH ×4 (09:32→19:58)
[2016-09-10 12:28] VITALS: Ht 182.9 cm; Wt 161.1 kg
[2016-09-10] MEDS ORDERED: HYDROCODONE/ACETAMOPHEN 5/325MG TAB PO PRN (14:30)
[2016-09-10] MEDS ORDERED: HYDROCODONE/ACETAMOPHEN 5/325MG TAB ONE (14:32)
[2016-09-10] MEDS ORDERED: GABAPENTIN 100 MG CAP PO ONE (14:45)
[2016-09-10 15:46] VITALS: BP 155/91; PULSE 98; TEMP 36.8; O2SAT 92
[2016-09-10] MEDS ORDERED: HYDROmorphone INJ 0.5 MG/0.5 ML SYR IV STA (16:00)
[2016-09-10] MEDS ORDERED: VANCOMYCIN TROUGH SCH (17:30)
--- NOTE | 2016-09-10 17:48 | DIAGNOSTIC IMAGING REPORT ---
ANKLE BRACHIAL INDEX COMPLETE CLINICAL HISTORY: Peripheral vascular disease COMPARISON STUDY: No previous studies for comparison. FINDINGS: Brachial systolic pressures were 141 mmHg on the right and 152 mmHg on the left. Posterior tibial systolic pressures were 168 mmHg on the right and 180 mmHg on the left. Dorsalis pedis systolic pressures were 152 mmHg on the right and 195 mmHg on the left. This yields normal ankle arm indices of 1.1 on the right and 1.3 on the left. IMPRESSION: Normal bilateral ankle brachial indices. Electronically signed by: Ray Brush M.D. 09/10/2016 5:46 PM Dictated Date/Time: 09/10/2016 5:44 PM
--- NOTE | 2016-09-10 18:04 | Progress Note ---
Medicine Progress Note Date & Time of Visit: Sep 10, 2016 at 18:04. Subjective Patient was doing better but overnight began having excruciating left thigh pain. He describes it as a sharp stabbing pain on his anterior thigh. No trauma or injury to that area. No other events noted. Tolerating PO. RLE improving. Objective Last 8 Hrs Date Time Temp Pulse Resp B/P (MAP) Pulse Ox O2 Delivery O2 Flow Rate FiO2 09/10/16 16:00 Room Air 09/10/16 15:46 36.8 98 18 155/91 (112) 92 Room Air Physical Exam: GENERAL: Patient is in no acute distress. HEENT: No acute trauma, normocephalic, mucous membranes moist, no nasal congestion, no scleral icterus. NECK: No stridor, trachea is midline. LUNGS: Clear to auscultation bilaterally, no wheeze, no rhonchi, breath sounds equal. HEART: Without murmurs gallops or rubs, regular rate and rhythm. ABDOMEN: Soft, nontender, bowel sounds positive EXTREMITIES: No cyanosis; RLE erythematous, warm, tender, + edema in both LE, R> L; patient moving left thigh, mild swelling but no rashes or erythema noted. NEUROLOGIC: Oriented x 3, no acute motor or sensory deficits, no focal weakness. SKIN: No rash, no jaundice, no diaphoresis. Laboratory Results: Last 24 Hours Test 09/09/16 19:58 09/10/16 06:37 09/10/16 07:46 09/10/16 11:56 Bedside Glucose 227 mg/dl 171 mg/dl 221 mg/dl White Blood Count 7.20 K/uL Red Blood Count 3.41 M/uL Hemoglobin 10.3 g/dL Hematocrit 30.5 % Mean Corpuscular Volume 89.4 fL Mean Corpuscular Hemoglobin 30.2 pg Mean Corpuscular Hemoglobin Concent 33.8 g/dl RDW Standard Deviation 44.2 fL RDW Coefficient of Variation 13.5 % Platelet Count 243 K/uL Mean Platelet Volume 8.9 fL Absolute Reticulocyte Count 0.10 10^6/uL Percent Reticulocyte Count 2.9 % Sodium Level 137 mmol/L Potassium Level 3.8 mmol/L Chloride Level 103 mmol/L Carbon Dioxide Level 28 mmol/L Anion Gap 6.0 mmol/L Blood Urea Nitrogen 15 mg/dl Creatinine 1.20 mg/dl Est Creatinine Clear Calc Drug Dose 113.7 ml/min Estimated GFR () 80.7 Estimated GFR (Non- 69.6 BUN/Creatinine Ratio 12.1 Random Glucose 173 mg/dl Calcium Level 8.1 mg/dl Iron Level 39 mcg/dl Total Iron Binding Capacity 223 mcg/dl Transferrin 166 mg/dl Transferrin % Saturation 17 % Ferritin 1246.8 ng/ml Vitamin B12 Level 496 pg/mL Folate 10.64 ng/mL Thyroid Stimulating Hormone (TSH) 3.520 uIu/ml Test 09/10/16 13:05 09/10/16 16:24 09/10/16 17:04 Stool Occult Blood NEGATIVE Bedside Glucose 151 mg/dl Assessment & Plan RLE Nonpurulent Cellulitis: -patient nasal MRSA positive -continued on Vancomycin day# 3 -elevate RLE when at rest -per patient, the edema is improving -can likely D/C IV fluids if PO intake adequate -BP and renal function stable/improved -B/L LE dopplers are negative SEVERE LEFT THIGH PAIN: -LE doppler negative for DVT -checked MINDI; normal 1.1 in both legs -will obtain imaging of left thigh if continues -PRN pain control -start neurontin KATI -recent diarrhea; possible viral gastroenteritis -creatinine was up to 1.5-->1.2 -on IV fluids; will stop as patient is taking in PO and has no diarrhea -avoid nephrotoxic agents DM Type II: -hold oral meds -insulin sliding scale while inpt -HbA1c: 7.2% HTN: -held lisinopril due to KATI -monitor BP Hypothyroidism: -continue Synthroid DVT Prophylaxis: -on subcutaneous heparin Current Inpatient Medications: Current Inpatient Medications Medications (Trade) Dose Ordered Sig/Yuliana Route Start Time Stop Time Status Last Admin Dose Admin Heparin Sodium (Porcine) (Heparin Sq 5000 Unit/0.5ml) 5,000 unit Q8H SQ 09/08/16 06:00 10/08/16 05:59 09/10/16 06:05 5,000 UNIT Acetaminophen (Tylenol Tab) 650 mg Q4H PRN PO 09/08/16 03:00 10/08/16 02:59 09/09/16 16:11 650 MG Al Hydrox/Mg Hydrox/Simethicone (Maalox Max Susp) 15 ml Q4H PRN PO 09/08/16 03:00 10/08/16 02:59 Magnesium Hydroxide (Milk Of Magnesia Susp) 30 ml Q6H PRN PO 09/08/16 03:00 10/08/16 02:59 Polyethylene (Miralax Powder Packet) 17 gm DAILY PRN PO 09/08/16 03:00 10/08/16 02:59 Ondansetron HCl (Zofran Inj) 4 mg Q6H PRN IV 09/08/16 03:00 10/08/16 02:59 Insulin Aspart (novoLOG ASPART) SLIDING SCALE If C... ACHS SC 09/08/16 06:30 10/08/16 06:59 09/10/16 12:44 3 UNITS Glucose (Glucose 40% Gel) 15-30 GRAMS 15 GRAMS... UD PRN PO 09/08/16 03:00 10/08/16 02:59 Glucose (Glucose Chew Tab) 4-8 Tablets 4 Tabl... UD PRN PO 09/08/16 03:00 10/08/16 02:59 Dextrose (Dextrose 50% 50ML Syringe) 25-50ML OF 50% DW IV FOR... UD PRN IV 09/08/16 03:00 10/08/16 02:59 Glucagon (Glucagon Inj) 1 mg UD PRN SQ 09/08/16 03:00 10/08/16 02:59 Atorvastatin Calcium (Lipitor Tab) 20 mg DAILY PO 09/08/16 08:00 10/08/16 08:59 09/10/16 08:03 20 MG Bupropion HCl (Wellbutrin-Xl Tab) 150 mg DAILY PO 09/08/16 08:00 10/08/16 08:59 09/10/16 08:03 150 MG Bupropion HCl (Wellbutrin-Xl Tab) 300 mg DAILY PO 09/08/16 08:00 10/08/16 08:59 09/10/16 08:04 300 MG Carvedilol (Coreg Tab) 25 mg BID PO 09/08/16 08:00 10/08/16 08:59 09/10/16 08:02 25 MG Citalopram Hydrobromide (celeXA TAB) 40 mg DAILY PO 09/08/16 08:00 10/08/16 08:59 09/10/16 08:02 40 MG Levothyroxine Sodium (Synthroid Tab) 125 mcg DAILYBB PO 09/08/16 06:30 10/08/16 06:29 09/10/16 06:03 125 MCG Pantoprazole Sodium (Protonix Tab) 40 mg QAM PO 09/08/16 08:00 10/08/16 07:59 09/10/16 08:03 40 MG Gabapentin (Neurontin Cap) 100 mg TID PO 09/10/16 20:00 10/10/16 19:59 Ferrous Sulfate (Feosol Tab) 325 mg BIDM PO 09/10/16 17:00 10/10/16 16:59 Clindamycin Phosphate 900 mg/ Dextrose 106 ml @ 100 mls/hr Q8H IV 09/10/16 18:00 09/20/16 17:59 Hydromorphone HCl (Dilaudid Inj) 1 mg Q4 PRN IV 09/10/16 17:15 09/24/16 17:14
[2016-09-10] MEDS: FERROUS SULFATE 325 MG TAB PO SCH (18:08)
[2016-09-10] MEDS: CLINDAMYCIN IV 900 MG in DEXTROSE 5% 100ML 100 ML IV SCH (18:08)
[2016-09-10 19:55] VITALS: BP 162/96; PULSE 91
[2016-09-10] MEDS: GABAPENTIN 100 MG CAP PO SCH (19:56)
[2016-09-10 23:48] VITALS: BP 180/83; PULSE 93; TEMP 37.7; O2SAT 91
[2016-09-11] MEDS: CLINDAMYCIN IV 900 MG in DEXTROSE 5% 100ML 100 ML IV SCH ×4 (01:52→18:03)
[2016-09-11 05:30] LABS: BASO % 0.2 %; BASO ABS # 0.02 K/uL (0-0.2); COMPLETE YES; EOS % 0.7 %; HEMATOCRIT 30.1 % (42-52); IG% 0.8 %; LYMPH ABS # 1.01 K/uL (1.2-3.4); MEAN CELL VOLUME 89.1 fL (80-100); MEAN CORPUSCULAR HEMOGLOBIN 29.9 pg (25-34); MEAN CORPUSCULAR HGB CONC 33.6 g/dl (32-36); MEAN PLATELET VOLUME 8.6 fL (7.4-10.4); NEUT % 80.3 %; PLATELET COUNT 279 K/uL (130-400); RED BLOOD COUNT 3.38 M/uL (4.7-6.1); WHITE BLOOD COUNT 10.05 K/uL (4.8-10.8)
[2016-09-11] MEDS: HYDROmorphone INJ 1 MG/ML SYR IV PRN ×5 (05:40→20:51)
[2016-09-11] MEDS: LEVOTHYROXINE 125 MCG TAB PO SCH (05:40)
[2016-09-11] MEDS: HEPARIN SOD 5000 UNIT/0.5 ML CARP SQ SCH ×3 (05:41→20:55)
[2016-09-11 05:57] LABS: BUN/CREATININE RATIO 10.2 (10-20); CALCIUM 8.2 mg/dl (8.5-10.1); CREATININE 1.1 mg/dl (0.60-1.40)
[2016-09-11 07:07] VITALS: BP 174/95; PULSE 91; TEMP 36.7; O2SAT 95
[2016-09-11] MEDS: INSULIN ASPART 100 UNITS/ML 3 ML PEN SC SCH ×4 (08:25→20:56)
[2016-09-11] MEDS: FERROUS SULFATE 325 MG TAB PO SCH ×2 (08:26→16:42)
[2016-09-11] MEDS: CITALOPRAM 40 MG TAB PO SCH (08:26)
[2016-09-11] MEDS: CARVEDILOL 25 MG TAB PO SCH ×2 (08:26→20:54)
[2016-09-11] MEDS: PANTOprazole SOD 40 MG TAB PO SCH (08:27)
[2016-09-11] MEDS: ATORVASTATIN 20 MG TAB PO SCH (08:27)
[2016-09-11] MEDS: GABAPENTIN 100 MG CAP PO SCH ×3 (08:27→20:52)
[2016-09-11] MEDS: BuPROPion XL 300 MG TABCR PO SCH (08:28)
[2016-09-11] MEDS: BuPROPion XL 150 MG TABCR PO SCH (08:28)
[2016-09-11] MEDS ORDERED: OPTIRAY 320 IV PRN (08:30)
--- NOTE | 2016-09-11 09:28 | DIAGNOSTIC IMAGING REPORT ---
CT LEFT THIGH WITH CONTRAST CT DOSE: 1214.04 mGy.cm CLINICAL HISTORY: Severe left thigh pain. Possible hematoma. TECHNIQUE: Helical images were acquired in transverse plane. The patient was administered 1 20 cc of Optiray 320. COMPARISON STUDY: None. FINDINGS: There is small fat-containing left inguinal hernia. There is mild subcutaneous edema. No soft tissue masses are visualized. There is no evidence for hematoma. There are no fractures. No bony destructive lesions are evident. IMPRESSION: 1. No evidence of acute fracture 2. No destructive lesions are visualized 3. No evidence of thigh hematoma 4. Mild subcutaneous edema Electronically signed by: Ray Brush M.D. 09/11/2016 9:27 AM Dictated Date/Time: 09/11/2016 9:24 AM
[2016-09-11] MEDS ORDERED: FUROSEMIDE 40 MG/4 ML VIAL IV STA (15:12)
[2016-09-11] MEDS ORDERED: FUROSEMIDE INJ 40 MG in SYRINGE 0 ML IV ONE (15:45)
[2016-09-11 16:02] VITALS: BP 165/90; PULSE 96; TEMP 37.3; O2SAT 91
--- NOTE | 2016-09-11 18:34 | Progress Note ---
Medicine Progress Note Date & Time of Visit: Sep 11, 2016 at 18:34. Subjective Patient still complaining of excruciating left thigh pain. States he was ok overnight but then this AM it started again. No pain else where. Tolerating PO. Has been ambulating in room. was at the bedside and updated. Objective Last 8 Hrs Date Time Temp Pulse Resp B/P (MAP) Pulse Ox O2 Delivery O2 Flow Rate FiO2 09/11/16 16:02 37.3 96 20 165/90 (115) 91 Room Air 09/11/16 16:00 Room Air Physical Exam: GENERAL: Patient is in no acute distress. HEENT: No acute trauma, normocephalic, mucous membranes moist, no nasal congestion, no scleral icterus. NECK: No stridor, trachea is midline. LUNGS: Clear to auscultation bilaterally, no wheeze, no rhonchi, breath sounds equal. HEART: Without murmurs gallops or rubs, regular rate and rhythm. ABDOMEN: Soft, nontender, bowel sounds positive EXTREMITIES: No cyanosis; RLE erythema improving, warm, tender, + pitting edema in both LE, R>L; patient moving left thigh, pain in the anterior thigh, mild swelling but no rashes or erythema noted. NEUROLOGIC: Oriented x 3, no acute motor or sensory deficits, no focal weakness. SKIN: No rash, no jaundice, no diaphoresis. Laboratory Results: Last 24 Hours Test 09/10/16 19:52 09/11/16 05:12 09/11/16 08:04 09/11/16 11:45 Bedside Glucose 182 mg/dl 185 mg/dl 203 mg/dl White Blood Count 10.05 K/uL Red Blood Count 3.38 M/uL Hemoglobin 10.1 g/dL Hematocrit 30.1 % Mean Corpuscular Volume 89.1 fL Mean Corpuscular Hemoglobin 29.9 pg Mean Corpuscular Hemoglobin Concent 33.6 g/dl Platelet Count 279 K/uL Mean Platelet Volume 8.6 fL Neutrophils (%) (Auto) 80.3 % Lymphocytes (%) (Auto) 10.0 % Monocytes (%) (Auto) 8.0 % Eosinophils (%) (Auto) 0.7 % Basophils (%) (Auto) 0.2 % Neutrophils # (Auto) 8.07 K/uL Lymphocytes # (Auto) 1.01 K/uL Monocytes # (Auto) 0.80 K/uL Eosinophils # (Auto) 0.07 K/uL Basophils # (Auto) 0.02 K/uL RDW Standard Deviation 43.5 fL RDW Coefficient of Variation 13.5 % Immature Granulocyte % (Auto) 0.8 % Immature Granulocyte # (Auto) 0.08 K/uL Sodium Level 136 mmol/L Potassium Level 4.0 mmol/L Chloride Level 101 mmol/L Carbon Dioxide Level 29 mmol/L Anion Gap 6.0 mmol/L Blood Urea Nitrogen 11 mg/dl Creatinine 1.10 mg/dl Est Creatinine Clear Calc Drug Dose 124.0 ml/min Estimated GFR () 89.6 Estimated GFR (Non- 77.3 BUN/Creatinine Ratio 10.2 Random Glucose 187 mg/dl Calcium Level 8.2 mg/dl Test 09/11/16 16:21 Bedside Glucose 183 mg/dl Assessment & Plan RLE Nonpurulent Cellulitis: -patient nasal MRSA positive -continued on Vancomycin for 3 days, now switched to clindamycin -elevate RLE when at rest -per patient, the edema is improving -D/C IV fluids -BP and renal function stable/improved -B/L LE dopplers are negative SEVERE LEFT THIGH PAIN: -LE doppler negative for DVT -checked MINDI; normal 1.1 in both legs -will obtain imaging of left thigh if continues -PRN pain control -start neurontin -CT thigh shows no hematoma, mild soft tissue swelling but otherwise normal -CPK normal KATI -recent diarrhea; possible viral gastroenteritis -creatinine was up to 1.5-->1.2-->1.1 -on IV fluids; stopped as patient is taking in PO -avoid nephrotoxic agents DM Type II: -hold oral meds -insulin sliding scale while inpt -HbA1c: 7.2% HTN: -held lisinopril due to KATI -monitor BP Hypothyroidism: -continue Synthroid DVT Prophylaxis: -on subcutaneous heparin Current Inpatient Medications: Current Inpatient Medications Medications (Trade) Dose Ordered Sig/Yuliana Route Start Time Stop Time Status Last Admin Dose Admin Heparin Sodium (Porcine) (Heparin Sq 5000 Unit/0.5ml) 5,000 unit Q8H SQ 09/08/16 06:00 10/08/16 05:59 09/11/16 14:16 5,000 UNIT Acetaminophen (Tylenol Tab) 650 mg Q4H PRN PO 09/08/16 03:00 10/08/16 02:59 09/09/16 16:11 650 MG Al Hydrox/Mg Hydrox/Simethicone (Maalox Max Susp) 15 ml Q4H PRN PO 09/08/16 03:00 10/08/16 02:59 Magnesium Hydroxide (Milk Of Magnesia Susp) 30 ml Q6H PRN PO 09/08/16 03:00 10/08/16 02:59 Polyethylene (Miralax Powder Packet) 17 gm DAILY PRN PO 09/08/16 03:00 10/08/16 02:59 Ondansetron HCl (Zofran Inj) 4 mg Q6H PRN IV 09/08/16 03:00 10/08/16 02:59 Insulin Aspart (novoLOG ASPART) SLIDING SCALE If C... ACHS SC 09/08/16 06:30 10/08/16 06:59 09/11/16 18:02 1 UNITS Glucose (Glucose 40% Gel) 15-30 GRAMS 15 GRAMS... UD PRN PO 09/08/16 03:00 10/08/16 02:59 Glucose (Glucose Chew Tab) 4-8 Tablets 4 Tabl... UD PRN PO 09/08/16 03:00 10/08/16 02:59 Dextrose (Dextrose 50% 50ML Syringe) 25-50ML OF 50% DW IV FOR... UD PRN IV 09/08/16 03:00 10/08/16 02:59 Glucagon (Glucagon Inj) 1 mg UD PRN SQ 09/08/16 03:00 10/08/16 02:59 Atorvastatin Calcium (Lipitor Tab) 20 mg DAILY PO 09/08/16 08:00 10/08/16 08:59 09/11/16 08:27 20 MG Bupropion HCl (Wellbutrin-Xl Tab) 150 mg DAILY PO 09/08/16 08:00 10/08/16 08:59 09/11/16 08:28 150 MG Bupropion HCl (Wellbutrin-Xl Tab) 300 mg DAILY PO 09/08/16 08:00 10/08/16 08:59 09/11/16 08:28 300 MG Carvedilol (Coreg Tab) 25 mg BID PO 09/08/16 08:00 10/08/16 08:59 09/11/16 08:26 25 MG Citalopram Hydrobromide (celeXA TAB) 40 mg DAILY PO 09/08/16 08:00 10/08/16 08:59 09/11/16 08:26 40 MG Levothyroxine Sodium (Synthroid Tab) 125 mcg DAILYBB PO 09/08/16 06:30 10/08/16 06:29 09/11/16 05:40 125 MCG Pantoprazole Sodium (Protonix Tab) 40 mg QAM PO 09/08/16 08:00 10/08/16 07:59 09/11/16 08:27 40 MG Ferrous Sulfate (Feosol Tab) 325 mg BIDM PO 09/10/16 17:00 10/10/16 16:59 09/11/16 16:42 325 MG Clindamycin Phosphate 900 mg/ Dextrose 106 ml @ 100 mls/hr Q8H IV 09/10/16 18:00 09/20/16 17:59 09/11/16 18:03 100 MLS/HR Hydromorphone HCl (Dilaudid Inj) 1 mg Q4 PRN IV 09/10/16 17:15 09/24/16 17:14 09/11/16 16:38 1 MG Ioversol (Optiray 320) 125 ml UD PRN IV 09/11/16 08:30 09/15/16 08:29 Gabapentin (Neurontin Cap) 200 mg TID PO 09/11/16 20:00 10/10/16 19:59
[2016-09-11 20:30] VITALS: BP 145/77; PULSE 88
[2016-09-12] VITALS (7 sets, daily range): BP systolic 125–150; BP diastolic 38–97; PULSE 78–88; TEMP 36.6–36.9; O2SAT 90–94
[2016-09-12] MEDS: CLINDAMYCIN IV 900 MG in DEXTROSE 5% 100ML 100 ML IV SCH ×3 (02:21→17:48)
[2016-09-12] MEDS: HYDROmorphone INJ 1 MG/ML SYR IV PRN ×5 (04:14→22:47)
[2016-09-12] MEDS: LEVOTHYROXINE 125 MCG TAB PO SCH (06:24)
[2016-09-12 06:25] LABS: HEMATOCRIT 30.3 % (42-52); MEAN CELL VOLUME 90.4 fL (80-100); MEAN CORPUSCULAR HGB CONC 34.3 g/dl (32-36); PLATELET COUNT 334 K/uL (130-400); RED BLOOD COUNT 3.35 M/uL (4.7-6.1); WHITE BLOOD COUNT 11.03 K/uL (4.8-10.8)
[2016-09-12] MEDS: HEPARIN SOD 5000 UNIT/0.5 ML CARP SQ SCH ×3 (06:27→21:58)
[2016-09-12 07:14] LABS: BUN/CREATININE RATIO 10.5 (10-20); CALCIUM 8.6 mg/dl (8.5-10.1); CREATININE 1.3 mg/dl (0.60-1.40); POTASSIUM 3.2 mmol/L (3.5-5.1)
[2016-09-12] MEDS: BuPROPion XL 150 MG TABCR PO SCH (08:12)
[2016-09-12] MEDS: BuPROPion XL 300 MG TABCR PO SCH (08:12)
[2016-09-12] MEDS: PANTOprazole SOD 40 MG TAB PO SCH (08:12)
[2016-09-12] MEDS: FERROUS SULFATE 325 MG TAB PO SCH ×2 (08:13→17:49)
[2016-09-12] MEDS: CITALOPRAM 40 MG TAB PO SCH (08:13)
[2016-09-12] MEDS: CARVEDILOL 25 MG TAB PO SCH ×2 (08:13→19:52)
[2016-09-12] MEDS: ATORVASTATIN 20 MG TAB PO SCH (08:13)
[2016-09-12] MEDS: GABAPENTIN 100 MG CAP PO SCH (08:14)
[2016-09-12] MEDS: INSULIN ASPART 100 UNITS/ML 3 ML PEN SC SCH ×4 (08:38→21:57)
--- NOTE | 2016-09-12 12:34 | Psychiatric Consultation ---
Consultation Date of Consultation Sep 12, 2016. Identifying Data Bill Frias is a 51-year-old male w/ hx of depression and episodic anxiety tx by PCP. Chief Complaint "I've been feeling more down for a while now. I asked my primary doctor about it but he said there wasn't much more we could do." History of Present Illness Patient medically admitted for right lower extremity pain. He is being treated for cellulitis. He was noted to have an acute kidney injury, possibly associated with recent diarrhea. Creatinine downtrending. He also has a history of diabetes, hypertension, hypothyroidism, arthritis. He has indicated low mood baseline and requested psychiatric consultation. Patient scored a 13 on phq9 indicating likely minor depression. On interview, patient reports he has been on the Celexa and Wellbutrin combination for many years, prescribed by Dr. Ramos. He does recall a therapeutic benefit, however he feels mood has been declining in recent years, more noticeably in the last several months. He describes multiple chronic stressors including separation from , children with their own problems, work stress. He has been missing more work in the past few months using up vacation time. He denies that his mood gets so bad that he feels hopeless or experiences suicidal ideation or wish. He jokes that he owes too much money to do something like that. He describes decreased interest and motivation but denies rohit anhedonia. He denies excessive anxiety at baseline but does have a distant history of some panic attacks around time of divorce and has experienced a few mild panic attacks in recent months. He is interested in trying an alternative antidepressant and is willing to pursue outpatient mental health follow-up. He previously saw Halle Rolle for counseling and would be willing to return. Past Psychiatric History Prior OP Treatment: therapist Prior Psych Hospitalizations: none Suicide Attempts: Yes Past Medication Trials Celexa and Wellbutrin for years Past Medical/Surgical History Dyslipidemia, hypertension, gout, hypokalemia, hypothyroidism, arthritis, hydrocele repair, cellulitis Allergies Allergies: Coded Allergies: Oxycodone (Verified Adverse Reaction, Unknown, nausea, 09/08/16) Home Medications Scheduled Atorvastatin (Lipitor), 20 MG PO DAILY Bupropion Hcl (Wellbutrin Xl), 150 MG PO DAILY Bupropion Hcl (Wellbutrin Xl), 300 MG PO DAILY Carvedilol (Coreg), 25 MG PO BID Citalopram Hydrobromide (Celexa), 40 MG PO DAILY Esomeprazole Magnesium (Nexium), 20 MG PO DAILY Glimepiride (Glimepiride), 1 MG PO QDB Levothyroxine Sodium (Synthroid), 125 MCG PO DAILY Lisinopril (Lisinopril), 20 MG PO DAILY Metformin Hcl (Glucophage), 500 MG PO BID Torsemide (Demadex), 100 MG PO QAM Scheduled PRN Cyclobenzaprine Hcl (Flexeril), 10 MG PO HS PRN for Muscle Spasms Hydrocortisone Acetate (Rectal (Anusol-Hc), 25 MG [place] BID PRN for Hemorrhoids Family History History of Suicide: No Describes diffuse family history of hyperlipidemia, hypertension, diabetes, obesity. 2 uncles with prostate cancer and sister with breast cancer. Alcohol Use Alcohol Use In Past 12 Months: Yes Drinks about 15 beers per week Smoking Use Smoking Status: Former Smoker Personal History Education: graduated from high school Relationship History: , other (remarried) Children: 4 Legal History: other (bankruptcy) Review of Systems Beyond his cellulitis in lower extreme pain, he denies acute physical complaints on 10 point review of systems other than as above Constitutional: other (low energy) Cardiovascular: reports: no symptoms reported Neurologic: reports: other (denies confusion) Examination Vital Signs Vital Signs Past 12 Hours Date Time Temp Pulse Resp B/P (MAP) Pulse Ox O2 Delivery O2 Flow Rate FiO2 09/12/16 08:30 94 Room Air 09/12/16 07:42 36.6 84 20 131/86 (101) 94 Room Air Laboratory Results Last 24 Hours Test 09/11/16 16:21 09/11/16 20:12 09/12/16 05:04 09/12/16 07:52 Bedside Glucose 183 mg/dl 199 mg/dl 175 mg/dl White Blood Count 11.03 K/uL Red Blood Count 3.35 M/uL Hemoglobin 10.4 g/dL Hematocrit 30.3 % Mean Corpuscular Volume 90.4 fL Mean Corpuscular Hemoglobin 31.0 pg Mean Corpuscular Hemoglobin Concent 34.3 g/dl RDW Standard Deviation 45.2 fL RDW Coefficient of Variation 13.7 % Platelet Count 334 K/uL Mean Platelet Volume 9.0 fL Sodium Level 132 mmol/L Potassium Level 3.2 mmol/L Chloride Level 95 mmol/L Carbon Dioxide Level 26 mmol/L Anion Gap 11.0 mmol/L Blood Urea Nitrogen 14 mg/dl Creatinine 1.30 mg/dl Est Creatinine Clear Calc Drug Dose 104.9 ml/min Estimated GFR () 73.2 Estimated GFR (Non- 63.2 BUN/Creatinine Ratio 10.5 Random Glucose 164 mg/dl Calcium Level 8.6 mg/dl Test 09/12/16 11:38 Bedside Glucose 219 mg/dl Mental Examination During interview pt is: alert and oriented Appearance: disheveled Eye contact is: good Motor behavior is: no abnormal motor movements Speech: normal in rate, rhythm & volume Affect: mood congruent Mood is: other (not terrible but not good) Thought process: goal directed, linear, logical Thought content: reality based without delusions Suicidal thought are: denied, Plan: denied, Intent: denied Hallucinations: denies auditory, denies visual Cognition: memory grossly intact, attention grossly intact Intelligence estimated to be: consistent with level of education Insight: good Judgement: good Impression / Recommendations Impression This is a 51-year-old gentleman with a history of depression going back many years, long treated on a combination of Celexa and Wellbutrin at maximal dose. He describes waning of therapeutic efficacy and mood baseline declining with some mild exacerbation of anxiety. He may benefit from an alternative SSRI given duration of treatment on Celexa. He is willing and eager to give this a try here in the hospital. He is also willing to participate in outpatient mental health follow-up. Dx: MDD, recurrent, mild to moderate with anxious distress Risk Factors Assessment Male: Yes : Yes Health problems: Yes Previous attempt: No Previous psychiatric stay: No Hopelessness: No Protective Factors Assessment : Yes Employed: Yes Recommendations Patient appears mildly depressed. No acute safety concerns appreciated. Willing to try alternative SSRI which may help revitalize therapeutic efficacy as he has been on the Celexa many years now. Discussed common risks and benefits associated with alternative medication including the potential risk for serotonin syndrome related to the antidepressant cross-taper. Patient verbalized understanding. We'll decrease Celexa to 20 mg daily for 1 week, then 10 mg daily for 1 week, then stop. Will start Zoloft 100 mg daily for 1 week, then 150 mg daily for 1 week, then 200 mg daily. During the cross-taper he should try to separate dosing of the Celexa and Zoloft to morning and evening. Please watch for any signs of serotonin excess which would indicate need to discontinue the antidepressants and restart with a single agent. He was agreeable to outpatient psychiatry and therapy follow-up which we can try to help arrange. Thank you for allowing us to participate in this patient's care
[2016-09-12] MEDS ORDERED: POTASSIUM CHLORIDE 10 MEQ TABCR PO ONE (13:30)
[2016-09-12] MEDS: GABAPENTIN 300 MG CAP PO SCH ×2 (14:25→19:50)
[2016-09-12] MEDS: FUROSEMIDE 20 MG TAB PO SCH (17:49)
--- NOTE | 2016-09-12 18:59 | Progress Note ---
Medicine Progress Note Date & Time of Visit: Sep 12, 2016 at 18:59. Subjective Patient still reports having severe left thigh pain anteriorly; states the pain seems to come and go without and know alleviating or exacerbating factors. His RLE erythema and pain have resolved. He still has some LE edema. Tolerating PO and activity without any issues. Objective Last 8 Hrs Date Time Temp Pulse Resp B/P (MAP) Pulse Ox O2 Delivery O2 Flow Rate FiO2 09/12/16 16:30 90 Room Air 09/12/16 16:29 149/89 (109) 09/12/16 16:29 79 150/97 (114) 09/12/16 16:19 36.6 80 18 149/38 (75) 90 Room Air Physical Exam: GENERAL: Patient is in no acute distress. HEENT: No acute trauma, normocephalic, mucous membranes moist, no nasal congestion, no scleral icterus. NECK: No stridor, trachea is midline. LUNGS: Clear to auscultation bilaterally, no wheeze, no rhonchi, breath sounds equal. HEART: Without murmurs gallops or rubs, regular rate and rhythm. ABDOMEN: Soft, nontender, bowel sounds positive EXTREMITIES: No cyanosis; RLE erythema improving, warm, tender, + pitting edema in both LE, R>L; left thigh, pain in the anterior thigh, mild swelling but no rashes or erythema noted. Left thigh pain with palpation NEUROLOGIC: Oriented x 3, no acute motor or sensory deficits, no focal weakness. SKIN: No rash, no jaundice, no diaphoresis. Laboratory Results: Last 24 Hours Test 09/11/16 20:12 09/12/16 05:04 09/12/16 07:52 09/12/16 11:38 Bedside Glucose 199 mg/dl 175 mg/dl 219 mg/dl White Blood Count 11.03 K/uL Red Blood Count 3.35 M/uL Hemoglobin 10.4 g/dL Hematocrit 30.3 % Mean Corpuscular Volume 90.4 fL Mean Corpuscular Hemoglobin 31.0 pg Mean Corpuscular Hemoglobin Concent 34.3 g/dl RDW Standard Deviation 45.2 fL RDW Coefficient of Variation 13.7 % Platelet Count 334 K/uL Mean Platelet Volume 9.0 fL Sodium Level 132 mmol/L Potassium Level 3.2 mmol/L Chloride Level 95 mmol/L Carbon Dioxide Level 26 mmol/L Anion Gap 11.0 mmol/L Blood Urea Nitrogen 14 mg/dl Creatinine 1.30 mg/dl Est Creatinine Clear Calc Drug Dose 104.9 ml/min Estimated GFR () 73.2 Estimated GFR (Non- 63.2 BUN/Creatinine Ratio 10.5 Random Glucose 164 mg/dl Calcium Level 8.6 mg/dl Test 09/12/16 16:37 Bedside Glucose 198 mg/dl Assessment & Plan RLE Nonpurulent Cellulitis: -patient nasal MRSA positive -continued on Vancomycin for 3 days, switched to clindamycin day#2 -elevate RLE when at rest -per patient, the edema is improving; continue with lasix -stopped IV fluids -BP and renal function stable/improved -B/L LE dopplers are negative SEVERE LEFT THIGH PAIN: -LE doppler negative for DVT -checked MINDI; normal 1.1 in both legs -will obtain imaging of left thigh if continues -PRN pain control -started neurontin, dose titrating up -CT thigh shows no hematoma, mild soft tissue swelling but otherwise normal -CPK normal -Ortho consulted [facility]AT[facility] -recent diarrhea; possible viral gastroenteritis -creatinine was up to 1.5-->1.2-->1.1 -IV fluids stopped as patient is taking in PO and BP improved -avoid nephrotoxic agents DM Type II: -hold oral meds -insulin sliding scale while inpt -HbA1c: 7.2% HTN: -held lisinopril due to KATI -monitor BP Hypothyroidism: -continue Synthroid DVT Prophylaxis: -on subcutaneous heparin Current Inpatient Medications: Current Inpatient Medications Medications (Trade) Dose Ordered Sig/Yuliana Route Start Time Stop Time Status Last Admin Dose Admin Heparin Sodium (Porcine) (Heparin Sq 5000 Unit/0.5ml) 5,000 unit Q8H SQ 09/08/16 06:00 10/08/16 05:59 09/12/16 14:26 5,000 UNIT Acetaminophen (Tylenol Tab) 650 mg Q4H PRN PO 09/08/16 03:00 10/08/16 02:59 09/09/16 16:11 650 MG Al Hydrox/Mg Hydrox/Simethicone (Maalox Max Susp) 15 ml Q4H PRN PO 09/08/16 03:00 10/08/16 02:59 Magnesium Hydroxide (Milk Of Magnesia Susp) 30 ml Q6H PRN PO 09/08/16 03:00 10/08/16 02:59 Polyethylene (Miralax Powder Packet) 17 gm DAILY PRN PO 09/08/16 03:00 10/08/16 02:59 09/12/16 18:46 17 GM Ondansetron HCl (Zofran Inj) 4 mg Q6H PRN IV 09/08/16 03:00 10/08/16 02:59 Insulin Aspart (novoLOG ASPART) SLIDING SCALE If C... ACHS SC 09/08/16 06:30 10/08/16 06:59 09/12/16 17:53 2 UNITS Glucose (Glucose 40% Gel) 15-30 GRAMS 15 GRAMS... UD PRN PO 09/08/16 03:00 10/08/16 02:59 Glucose (Glucose Chew Tab) 4-8 Tablets 4 Tabl... UD PRN PO 09/08/16 03:00 10/08/16 02:59 Dextrose (Dextrose 50% 50ML Syringe) 25-50ML OF 50% DW IV FOR... UD PRN IV 09/08/16 03:00 10/08/16 02:59 Glucagon (Glucagon Inj) 1 mg UD PRN SQ 09/08/16 03:00 10/08/16 02:59 Atorvastatin Calcium (Lipitor Tab) 20 mg DAILY PO 09/08/16 08:00 10/08/16 08:59 09/12/16 08:13 20 MG Bupropion HCl (Wellbutrin-Xl Tab) 150 mg DAILY PO 09/08/16 08:00 10/08/16 08:59 09/12/16 08:12 150 MG Bupropion HCl (Wellbutrin-Xl Tab) 300 mg DAILY PO 09/08/16 08:00 10/08/16 08:59 09/12/16 08:12 300 MG Carvedilol (Coreg Tab) 25 mg BID PO 09/08/16 08:00 10/08/16 08:59 09/12/16 08:13 25 MG Levothyroxine Sodium (Synthroid Tab) 125 mcg DAILYBB PO 09/08/16 06:30 10/08/16 06:29 09/12/16 06:24 125 MCG Pantoprazole Sodium (Protonix Tab) 40 mg QAM PO 09/08/16 08:00 10/08/16 07:59 09/12/16 08:12 40 MG Ferrous Sulfate (Feosol Tab) 325 mg BIDM PO 09/10/16 17:00 10/10/16 16:59 09/12/16 17:49 325 MG Clindamycin Phosphate 900 mg/ Dextrose 106 ml @ 100 mls/hr Q8H IV 09/10/16 18:00 09/20/16 17:59 09/12/16 17:48 100 MLS/HR Hydromorphone HCl (Dilaudid Inj) 1 mg Q4 PRN IV 09/10/16 17:15 09/24/16 17:14 09/12/16 18:45 1 MG Ioversol (Optiray 320) 125 ml UD PRN IV 09/11/16 08:30 09/15/16 08:29 Citalopram Hydrobromide (celeXA TAB) 20 mg Taper QAM PO 09/13/16 08:00 09/27/16 07:59 Sertraline HCl (Zoloft Tab) 100 mg Taper HS PO 09/13/16 21:00 10/27/16 20:59 Furosemide (Lasix Tab) 20 mg BID17 PO 09/12/16 17:00 10/12/16 16:59 09/12/16 17:49 20 MG Docusate Sodium (coLACE CAP) 100 mg BID PO 09/12/16 20:00 10/12/16 19:59 Gabapentin (Neurontin Cap) 300 mg TID PO 09/12/16 14:00 10/10/16 19:59 09/12/16 14:25 300 MG
[2016-09-12] MEDS: DOCUSATE SODIUM 100 MG CAP PO SCH (19:50)
[2016-09-13] MEDS: CLINDAMYCIN IV 900 MG in DEXTROSE 5% 100ML 100 ML IV SCH ×3 (02:03→18:01)
[2016-09-13] MEDS: HYDROmorphone INJ 1 MG/ML SYR IV PRN ×2 (03:36→07:47)
[2016-09-13] MEDS: LEVOTHYROXINE 125 MCG TAB PO SCH (05:52)
[2016-09-13] MEDS: HEPARIN SOD 5000 UNIT/0.5 ML CARP SQ SCH ×3 (05:53→21:48)
[2016-09-13 06:59] LABS: MEAN CELL VOLUME 90.6 fL (80-100); MEAN CORPUSCULAR HEMOGLOBIN 30.9 pg (25-34); MEAN CORPUSCULAR HGB CONC 34.1 g/dl (32-36); MEAN PLATELET VOLUME 9.5 fL (7.4-10.4); PLATELET COUNT 333 K/uL (130-400); WHITE BLOOD COUNT 8.61 K/uL (4.8-10.8)
[2016-09-13 07:08] LABS: BUN/CREATININE RATIO 13.6 (10-20); CALCIUM 8.8 mg/dl (8.5-10.1); CREATININE 1.3 mg/dl (0.60-1.40); POTASSIUM 4.1 mmol/L (3.5-5.1)
[2016-09-13 07:35] VITALS: BP 139/87; PULSE 77; TEMP 36.6; O2SAT 93
[2016-09-13] MEDS: CARVEDILOL 25 MG TAB PO SCH ×2 (07:48→20:18)
[2016-09-13] MEDS: DOCUSATE SODIUM 100 MG CAP PO SCH ×2 (07:48→20:19)
[2016-09-13] MEDS: GABAPENTIN 300 MG CAP PO SCH ×3 (07:48→20:19)
[2016-09-13] MEDS: ATORVASTATIN 20 MG TAB PO SCH (07:48)
[2016-09-13] MEDS: PANTOprazole SOD 40 MG TAB PO SCH (07:49)
[2016-09-13] MEDS: BuPROPion XL 150 MG TABCR PO SCH (07:49)
[2016-09-13] MEDS: CITALOPRAM 20 MG TAB PO SCH (07:49)
[2016-09-13] MEDS: BuPROPion XL 300 MG TABCR PO SCH (07:49)
[2016-09-13] MEDS: FERROUS SULFATE 325 MG TAB PO SCH ×2 (07:50→18:00)
[2016-09-13] MEDS: FUROSEMIDE 20 MG TAB PO SCH ×2 (07:51→18:01)
[2016-09-13 08:30] VITALS: O2SAT 93
[2016-09-13] MEDS: INSULIN ASPART 100 UNITS/ML 3 ML PEN SC SCH ×4 (08:56→21:48)
--- NOTE | 2016-09-13 15:00 | Orthopedic Consultation ---
Orthopedic Consultation Date of Consultation: Sep 13, 2016. Attending Physician: Kirstie Cummins D.O. Reason for Consultation: Left thigh pain History of Present Illness Patient has a proximally 1 week history of worsening cellulitis in the right lower extremity. He has been admitted for treatment for IV antibiotics for the right lower extremity cellulitis. He has been responding to the IV antibiotic therapy. Over the last 2 days he has had intermittent pain in the anterior aspect of thigh that he describes as a sharp piercing burning type pain. He denies any radicular pain. Denies neurologic symptoms. He has a history of sciatica but this typically will affects the contralateral side. Currently he has no pain in the leg and is able to ambulate without any difficulty. Past Medical/Surgical History Medical Problems: (1) Sepsis Status: Acute Social History Smoking Status: Former Smoker Marital Status: Housing Status: lives with family Occupation Status: employed Allergies Coded Allergies: Oxycodone (Verified Adverse Reaction, Unknown, nausea, 09/08/16) Home Medications Scheduled Atorvastatin (Lipitor), 20 MG PO DAILY Bupropion Hcl (Wellbutrin Xl), 150 MG PO DAILY Bupropion Hcl (Wellbutrin Xl), 300 MG PO DAILY Carvedilol (Coreg), 25 MG PO BID Citalopram Hydrobromide (Celexa), 40 MG PO DAILY Esomeprazole Magnesium (Nexium), 20 MG PO DAILY Glimepiride (Glimepiride), 1 MG PO QDB Levothyroxine Sodium (Synthroid), 125 MCG PO DAILY Lisinopril (Lisinopril), 20 MG PO DAILY Metformin Hcl (Glucophage), 500 MG PO BID Torsemide (Demadex), 100 MG PO QAM Scheduled PRN Cyclobenzaprine Hcl (Flexeril), 10 MG PO HS PRN for Muscle Spasms Hydrocortisone Acetate (Rectal (Anusol-Hc), 25 MG [place] BID PRN for Hemorrhoids Current Inpatient Medications Current Inpatient Medications Medications (Trade) Dose Ordered Sig/Yuliana Route Start Time Stop Time Status Last Admin Dose Admin Heparin Sodium (Porcine) (Heparin Sq 5000 Unit/0.5ml) 5,000 unit Q8H SQ 09/08/16 06:00 10/08/16 05:59 09/13/16 05:53 5,000 UNIT Acetaminophen (Tylenol Tab) 650 mg Q4H PRN PO 09/08/16 03:00 10/08/16 02:59 09/09/16 16:11 650 MG Al Hydrox/Mg Hydrox/Simethicone (Maalox Max Susp) 15 ml Q4H PRN PO 09/08/16 03:00 10/08/16 02:59 Magnesium Hydroxide (Milk Of Magnesia Susp) 30 ml Q6H PRN PO 09/08/16 03:00 10/08/16 02:59 Polyethylene (Miralax Powder Packet) 17 gm DAILY PRN PO 09/08/16 03:00 10/08/16 02:59 09/12/16 18:46 17 GM Ondansetron HCl (Zofran Inj) 4 mg Q6H PRN IV 09/08/16 03:00 10/08/16 02:59 Insulin Aspart (novoLOG ASPART) SLIDING SCALE If C... ACHS SC 09/08/16 06:30 10/08/16 06:59 09/13/16 12:44 3 UNITS Glucose (Glucose 40% Gel) 15-30 GRAMS 15 GRAMS... UD PRN PO 09/08/16 03:00 10/08/16 02:59 Glucose (Glucose Chew Tab) 4-8 Tablets 4 Tabl... UD PRN PO 09/08/16 03:00 10/08/16 02:59 Dextrose (Dextrose 50% 50ML Syringe) 25-50ML OF 50% DW IV FOR... UD PRN IV 09/08/16 03:00 10/08/16 02:59 Glucagon (Glucagon Inj) 1 mg UD PRN SQ 09/08/16 03:00 10/08/16 02:59 Atorvastatin Calcium (Lipitor Tab) 20 mg DAILY PO 09/08/16 08:00 10/08/16 08:59 09/13/16 07:48 20 MG Bupropion HCl (Wellbutrin-Xl Tab) 150 mg DAILY PO 09/08/16 08:00 10/08/16 08:59 09/13/16 07:49 150 MG Bupropion HCl (Wellbutrin-Xl Tab) 300 mg DAILY PO 09/08/16 08:00 10/08/16 08:59 09/13/16 07:49 300 MG Carvedilol (Coreg Tab) 25 mg BID PO 09/08/16 08:00 10/08/16 08:59 09/13/16 07:48 25 MG Levothyroxine Sodium (Synthroid Tab) 125 mcg DAILYBB PO 09/08/16 06:30 10/08/16 06:29 09/13/16 05:52 125 MCG Pantoprazole Sodium (Protonix Tab) 40 mg QAM PO 09/08/16 08:00 10/08/16 07:59 09/13/16 07:49 40 MG Ferrous Sulfate (Feosol Tab) 325 mg BIDM PO 09/10/16 17:00 10/10/16 16:59 09/13/16 07:50 325 MG Clindamycin Phosphate 900 mg/ Dextrose 106 ml @ 100 mls/hr Q8H IV 09/10/16 18:00 09/20/16 17:59 09/13/16 10:23 100 MLS/HR Hydromorphone HCl (Dilaudid Inj) 1 mg Q4 PRN IV 09/10/16 17:15 09/24/16 17:14 09/13/16 07:47 1 MG Ioversol (Optiray 320) 125 ml UD PRN IV 09/11/16 08:30 09/15/16 08:29 Citalopram Hydrobromide (celeXA TAB) 20 mg Taper QAM PO 09/13/16 08:00 09/27/16 07:59 09/13/16 07:49 20 MG Sertraline HCl (Zoloft Tab) 100 mg Taper HS PO 09/13/16 21:00 10/27/16 20:59 Furosemide (Lasix Tab) 20 mg BID17 PO 09/12/16 17:00 10/12/16 16:59 09/13/16 07:51 20 MG Docusate Sodium (coLACE CAP) 100 mg BID PO 09/12/16 20:00 10/12/16 19:59 09/13/16 07:48 100 MG Gabapentin (Neurontin Cap) 300 mg TID PO 09/12/16 14:00 10/10/16 19:59 09/13/16 07:48 300 MG Physical Exam Date Time Temp Pulse Resp B/P (MAP) Pulse Ox O2 Delivery O2 Flow Rate FiO2 09/13/16 08:30 93 Room Air 09/13/16 07:35 36.6 77 20 139/87 (104) 93 Room Air 09/13/16 00:00 Room Air 09/12/16 23:42 36.9 78 20 125/79 (94) 94 Room Air 09/12/16 20:00 Room Air 09/12/16 16:30 90 Room Air 09/12/16 16:29 149/89 (109) 09/12/16 16:29 79 150/97 (114) 09/12/16 16:19 36.6 80 18 149/38 (75) 90 Room Air General Appearance: no apparent distress Head: normocephalic Eyes: normal inspection Respiratory/Chest: lungs clear Cardiovascular: regular rate, rhythm Extremities/Musculoskelatal: + pertinent finding (right lower extremity: Mild edema distally mild erythema over the tibia which the patient states has been improving. Left lower extremity: Inspection of the thigh is normal. No swelling in this region. No erythema. No tenderness to palpation along the thigh hip or knee. No pain with rotation of the leg. Distally neurologically intact. Compartments are soft. He is able to ambulate without discomfort.) Laboratory Results Last 24 Hours Test 09/12/16 16:37 09/12/16 19:53 09/13/16 05:48 09/13/16 07:45 Bedside Glucose 198 mg/dl 211 mg/dl 165 mg/dl White Blood Count 8.61 K/uL Red Blood Count 3.20 M/uL Hemoglobin 9.9 g/dL Hematocrit 29.0 % Mean Corpuscular Volume 90.6 fL Mean Corpuscular Hemoglobin 30.9 pg Mean Corpuscular Hemoglobin Concent 34.1 g/dl RDW Standard Deviation 45.2 fL RDW Coefficient of Variation 13.7 % Platelet Count 333 K/uL Mean Platelet Volume 9.5 fL Sodium Level 133 mmol/L Potassium Level 4.1 mmol/L Chloride Level 96 mmol/L Carbon Dioxide Level 29 mmol/L Anion Gap 8.0 mmol/L Blood Urea Nitrogen 18 mg/dl Creatinine 1.30 mg/dl Est Creatinine Clear Calc Drug Dose 104.9 ml/min Estimated GFR () 73.2 Estimated GFR (Non- 63.2 BUN/Creatinine Ratio 13.6 Random Glucose 167 mg/dl Calcium Level 8.8 mg/dl Test 09/13/16 11:44 Bedside Glucose 189 mg/dl Assessment & Plan Assessment: intermittent left anterior thigh pain Plan: Patient states that the pain has been off and on. He is currently asymptomatic. CT scan of that area is normal. My exam today is benign. My suspicion is that he is having irritation from the lumbar spine due to being in bed for prolonged period after his need for IV antibiotics and he is getting some intermittent radicular pain to the thigh. Likely once he is able to be more mobile she will be placing as much stress on the region. If he has worsening or persistent pain we can do further workup but for now I would treat the pain symptomatically
[2016-09-13 16:09] VITALS: BP 158/90; PULSE 82; TEMP 36.8; O2SAT 95
--- NOTE | 2016-09-13 19:06 | Progress Note ---
Medicine Progress Note Date & Time of Visit: Sep 13, 2016 at 19:05. Subjective Patient still reports intermittent pain in his left thigh. He states it occurs unpredictably and not associated with movement. He feels his RLE is better. Edema in legs still present. No overnight events noted. Tolerating PO. Has some constipation with starting iron tablets and pain meds. Objective Last 8 Hrs Date Time Temp Pulse Resp B/P (MAP) Pulse Ox O2 Delivery O2 Flow Rate FiO2 09/13/16 16:09 36.8 82 18 158/90 (112) 95 Room Air 09/13/16 15:30 Room Air Physical Exam: GENERAL: Patient is in no acute distress. HEENT: No acute trauma, normocephalic, mucous membranes moist, no nasal congestion, no scleral icterus. NECK: No stridor, trachea is midline. LUNGS: Clear to auscultation bilaterally, no wheeze, no rhonchi, breath sounds equal. HEART: Without murmurs gallops or rubs, regular rate and rhythm. ABDOMEN: Soft, nontender, bowel sounds positive EXTREMITIES: No cyanosis; RLE erythema improving, warm, tender, + pitting edema in both LE, R>L; left thigh, pain in the anterior thigh, mild swelling but no rashes or erythema noted. Left thigh pain with palpation NEUROLOGIC: Oriented x 3, no acute motor or sensory deficits, no focal weakness. SKIN: No rash, no jaundice, no diaphoresis. Laboratory Results: Last 24 Hours Test 09/12/16 19:53 09/13/16 05:48 09/13/16 07:45 09/13/16 11:44 Bedside Glucose 211 mg/dl 165 mg/dl 189 mg/dl White Blood Count 8.61 K/uL Red Blood Count 3.20 M/uL Hemoglobin 9.9 g/dL Hematocrit 29.0 % Mean Corpuscular Volume 90.6 fL Mean Corpuscular Hemoglobin 30.9 pg Mean Corpuscular Hemoglobin Concent 34.1 g/dl RDW Standard Deviation 45.2 fL RDW Coefficient of Variation 13.7 % Platelet Count 333 K/uL Mean Platelet Volume 9.5 fL Sodium Level 133 mmol/L Potassium Level 4.1 mmol/L Chloride Level 96 mmol/L Carbon Dioxide Level 29 mmol/L Anion Gap 8.0 mmol/L Blood Urea Nitrogen 18 mg/dl Creatinine 1.30 mg/dl Est Creatinine Clear Calc Drug Dose 104.9 ml/min Estimated GFR () 73.2 Estimated GFR (Non- 63.2 BUN/Creatinine Ratio 13.6 Random Glucose 167 mg/dl Calcium Level 8.8 mg/dl Test 09/13/16 16:43 Bedside Glucose 184 mg/dl Assessment & Plan RLE Nonpurulent Cellulitis: -patient nasal MRSA positive -continued on Vancomycin for 3 days, switched to clindamycin day#3 -elevate RLE when at rest -per patient, the edema is improving; continue with lasix -stopped IV fluids -BP and renal function stable/improved -B/L LE dopplers are negative SEVERE LEFT THIGH PAIN: -LE doppler negative for DVT -checked MINDI; normal 1.1 in both legs -will obtain imaging of left thigh if continues -PRN pain control -started neurontin, dose titrating up -CT thigh shows no hematoma, mild soft tissue swelling but otherwise normal -CPK normal -Ortho consulted, appreciate recs -attempt to switch pain meds to po KATI -recent diarrhea; possible viral gastroenteritis -creatinine was up to 1.5 -IV fluids stopped as patient is taking in PO and BP improved -avoid nephrotoxic agents DM Type II: -hold oral meds -insulin sliding scale while inpt -HbA1c: 7.2% HTN: -held lisinopril due to KATI -monitor BP Hypothyroidism: -continue Synthroid DVT Prophylaxis: -on subcutaneous heparin Current Inpatient Medications: Current Inpatient Medications Medications (Trade) Dose Ordered Sig/Yuliana Route Start Time Stop Time Status Last Admin Dose Admin Heparin Sodium (Porcine) (Heparin Sq 5000 Unit/0.5ml) 5,000 unit Q8H SQ 09/08/16 06:00 10/08/16 05:59 09/13/16 15:20 5,000 UNIT Acetaminophen (Tylenol Tab) 650 mg Q4H PRN PO 09/08/16 03:00 10/08/16 02:59 09/09/16 16:11 650 MG Al Hydrox/Mg Hydrox/Simethicone (Maalox Max Susp) 15 ml Q4H PRN PO 09/08/16 03:00 10/08/16 02:59 Magnesium Hydroxide (Milk Of Magnesia Susp) 30 ml Q6H PRN PO 09/08/16 03:00 10/08/16 02:59 Polyethylene (Miralax Powder Packet) 17 gm DAILY PRN PO 09/08/16 03:00 10/08/16 02:59 09/12/16 18:46 17 GM Ondansetron HCl (Zofran Inj) 4 mg Q6H PRN IV 09/08/16 03:00 10/08/16 02:59 Insulin Aspart (novoLOG ASPART) SLIDING SCALE If C... ACHS SC 09/08/16 06:30 10/08/16 06:59 09/13/16 18:05 4 UNITS Glucose (Glucose 40% Gel) 15-30 GRAMS 15 GRAMS... UD PRN PO 09/08/16 03:00 10/08/16 02:59 Glucose (Glucose Chew Tab) 4-8 Tablets 4 Tabl... UD PRN PO 09/08/16 03:00 10/08/16 02:59 Dextrose (Dextrose 50% 50ML Syringe) 25-50ML OF 50% DW IV FOR... UD PRN IV 09/08/16 03:00 10/08/16 02:59 Glucagon (Glucagon Inj) 1 mg UD PRN SQ 09/08/16 03:00 10/08/16 02:59 Atorvastatin Calcium (Lipitor Tab) 20 mg DAILY PO 09/08/16 08:00 10/08/16 08:59 09/13/16 07:48 20 MG Bupropion HCl (Wellbutrin-Xl Tab) 150 mg DAILY PO 09/08/16 08:00 10/08/16 08:59 09/13/16 07:49 150 MG Bupropion HCl (Wellbutrin-Xl Tab) 300 mg DAILY PO 09/08/16 08:00 10/08/16 08:59 09/13/16 07:49 300 MG Carvedilol (Coreg Tab) 25 mg BID PO 09/08/16 08:00 10/08/16 08:59 09/13/16 07:48 25 MG Levothyroxine Sodium (Synthroid Tab) 125 mcg DAILYBB PO 09/08/16 06:30 10/08/16 06:29 09/13/16 05:52 125 MCG Pantoprazole Sodium (Protonix Tab) 40 mg QAM PO 09/08/16 08:00 10/08/16 07:59 09/13/16 07:49 40 MG Ferrous Sulfate (Feosol Tab) 325 mg BIDM PO 09/10/16 17:00 10/10/16 16:59 09/13/16 18:00 325 MG Clindamycin Phosphate 900 mg/ Dextrose 106 ml @ 100 mls/hr Q8H IV 09/10/16 18:00 09/20/16 17:59 09/13/16 18:01 100 MLS/HR Hydromorphone HCl (Dilaudid Inj) 1 mg Q4 PRN IV 09/10/16 17:15 09/24/16 17:14 09/13/16 07:47 1 MG Ioversol (Optiray 320) 125 ml UD PRN IV 09/11/16 08:30 09/15/16 08:29 Citalopram Hydrobromide (celeXA TAB) 20 mg Taper QAM PO 09/13/16 08:00 09/27/16 07:59 09/13/16 07:49 20 MG Sertraline HCl (Zoloft Tab) 100 mg Taper HS PO 09/13/16 21:00 10/27/16 20:59 Furosemide (Lasix Tab) 20 mg BID17 PO 09/12/16 17:00 10/12/16 16:59 09/13/16 18:01 20 MG Docusate Sodium (coLACE CAP) 100 mg BID PO 09/12/16 20:00 10/12/16 19:59 09/13/16 07:48 100 MG Gabapentin (Neurontin Cap) 300 mg TID PO 09/12/16 14:00 10/10/16 19:59 09/13/16 14:44 300 MG
[2016-09-13 20:16] VITALS: BP 144/91; PULSE 80
[2016-09-13] MEDS: HYDROCODONE/ACETAMI 10/325 TAB PO PRN (20:17)
[2016-09-13] MEDS ORDERED: SERTRALINE HCL 100 MG TAB PO SCH (21:00)
[2016-09-13 23:33] VITALS: BP 119/72; PULSE 72; TEMP 36.5; O2SAT 96
[2016-09-14] MEDS: CLINDAMYCIN IV 900 MG in DEXTROSE 5% 100ML 100 ML IV SCH ×2 (02:14→09:06)
[2016-09-14] MEDS: HYDROCODONE/ACETAMI 10/325 TAB PO PRN (02:16)
[2016-09-14 05:52] LABS: HEMATOCRIT 27.4 % (42-52); MEAN CELL VOLUME 89.3 fL (80-100); MEAN CORPUSCULAR HEMOGLOBIN 30.3 pg (25-34); MEAN CORPUSCULAR HGB CONC 33.9 g/dl (32-36); PLATELET COUNT 372 K/uL (130-400); RED BLOOD COUNT 3.07 M/uL (4.7-6.1)
[2016-09-14] MEDS: LEVOTHYROXINE 125 MCG TAB PO SCH (06:05)
[2016-09-14] MEDS: HEPARIN SOD 5000 UNIT/0.5 ML CARP SQ SCH ×2 (06:06→13:16)
[2016-09-14 07:43] VITALS: BP 130/79; PULSE 74; TEMP 36.9; O2SAT 96
[2016-09-14] MEDS: BuPROPion XL 300 MG TABCR PO SCH (09:03)
[2016-09-14] MEDS: GABAPENTIN 300 MG CAP PO SCH ×2 (09:03→14:06)
[2016-09-14] MEDS: FERROUS SULFATE 325 MG TAB PO SCH (09:04)
[2016-09-14] MEDS: PANTOprazole SOD 40 MG TAB PO SCH (09:04)
[2016-09-14] MEDS: CARVEDILOL 25 MG TAB PO SCH (09:04)
[2016-09-14] MEDS: ATORVASTATIN 20 MG TAB PO SCH (09:04)
[2016-09-14] MEDS: DOCUSATE SODIUM 100 MG CAP PO SCH (09:05)
[2016-09-14] MEDS: BuPROPion XL 150 MG TABCR PO SCH (09:05)
[2016-09-14] MEDS: CITALOPRAM 20 MG TAB PO SCH (09:05)
[2016-09-14] MEDS: FUROSEMIDE 20 MG TAB PO SCH (09:05)
[2016-09-14] MEDS: INSULIN ASPART 100 UNITS/ML 3 ML PEN SC SCH ×2 (09:10→13:15)
--- NOTE | 2016-09-14 13:28 | Progress Note ---
Internal Med Progress Note Date of Service: Sep 14, 2016. Provider Documentation: SUBJECTIVE: back pain with radiation to left thigh has improved no pain or discomfort on rt leg feel ok to go to home today OBJECTIVE: Vital Signs-as noted below Exam: General-no sign of distress Eyes-sclera non icteric Lungs-CTA Heart-regular Abdomen-soft, non tender Extremities-minimum erythema noted on rt leg Neuro-no focal deficit Lab data as noted below. ASSESSMENT & PLAN: RLE Cellulitis: -patient nasal MRSA positive -was on Vancomycin for 3 days, switched to clindamycin day#4 discharge home with 3 more days of ( total #10 days ) -B/L LE dopplers are negative SEVERE LEFT THIGH PAIN: symptom has resolved -LE doppler negative for DVT -checked MINDI; normal 1.1 in both legs -started neurontin, dose titrating up -CT thigh shows no hematoma, mild soft tissue swelling but otherwise normal -CPK normal -Ortho consulted, appreciate recs -attempt to switch pain meds to po -increased activity KATI resolved -recent diarrhea; possible viral gastroenteritis -creatinine was up to 1.5 -IV fluids stopped as patient is taking in PO and BP improved -avoid nephrotoxic agents DM Type II: -insulin sliding scale while inpt -HbA1c: 7.2% HTN: -resume lisinopril -monitor BP Hypothyroidism: -continue Synthroid DVT Prophylaxis: -on subcutaneous heparin DISPOSITION discharge home today Follow up with Dr Ramos on September 21 @11: 05 am Vital Signs: Date Time Temp Pulse Resp B/P (MAP) Pulse Ox O2 Delivery O2 Flow Rate FiO2 09/14/16 09:10 Room Air 09/14/16 07:43 36.9 74 18 130/79 (96) 96 Room Air 09/14/16 00:00 Room Air 09/13/16 23:33 36.5 72 18 119/72 (88) 96 Room Air 09/13/16 20:16 80 144/91 (108) 09/13/16 20:00 Room Air 09/13/16 16:09 36.8 82 18 158/90 (112) 95 Room Air 09/13/16 15:30 Room Air Lab Results: Results Past 24 Hours Test 09/13/16 16:43 09/13/16 19:55 09/14/16 05:18 09/14/16 07:40 Range/Units Bedside Glucose 184 202 169 70-99 mg/dl White Blood Count 6.90 4.8-10.8 K/uL Red Blood Count 3.07 4.7-6.1 M/uL Hemoglobin 9.3 14.0-18.0 g/dL Hematocrit 27.4 42-52 % Mean Corpuscular Volume 89.3 80-100 fL Mean Corpuscular Hemoglobin 30.3 25-34 pg Mean Corpuscular Hemoglobin Concent 33.9 32-36 g/dl RDW Standard Deviation 43.7 36.4-46.3 fL RDW Coefficient of Variation 13.5 11.5-14.5 % Platelet Count 372 130-400 K/uL Mean Platelet Volume 9.0 7.4-10.4 fL
[2016-09-14] MEDS ORDERED: HYDR-4079 PO (13:38)
[2016-09-14] MEDS ORDERED: CLC150 PO (13:38)
--- NOTE | 2016-09-14 13:41 | Discharge Instructions ---
Discharge Instructions Date of Service Sep 14, 2016. Admission Reason for Admission: Cellulitis Discharge Discharge Diagnosis / Problem: LOWER EXTREMITY CELLULITIS Discharge Goals Goal(s): Decrease discomfort, Improve disease control Activity Recommendations Activity Limitations: resume your previous activity RETURN TO WORK ON FULL CAPACITY ON September . Instructions / Follow-Up Instructions / Follow-Up HOSPITAL FOLLOW UP WITH DR EPSTEIN ON September @ 11:[address] WHILE TAKING OXYCODONE \\ TAKE STOOL SOFTENER - IT CAN MAKE YOU CONSTIPATED DO NOT TAKE EXTRA TYLENOL WHILE TAKING OXYCODONE ( HAS TYLENOL IN IT ) NEW MEDICATION FOR ANTIDEPRESSIVE : decrease Celexa to 20 mg daily for 1 week, then 10 mg daily for 1 week, then stop. Start Zoloft 100 mg daily for 1 week, then 150 mg daily for 1 week, then 200 mg daily. During the cross-taper he should try to separate dosing of the Celexa and Zoloft to morning and evening to prevent of overt side effect Please set up follow up appointment with Psychiatry as out patient Current Hospital Diet Patient's current hospital diet: Diabetes Type 2 Diet, Low Sodium Diet (2gm Na) Discharge Diet Recommended Diet: Low Sodium Diet (2gm Na), Diabetes Type 2 Diet Pending Studies Studies pending at discharge: no Laboratory Results Hemoglobin A1c Test 09/09/16 05:31 Range/Units Estimated Average Glucose 160 mg/dl Hemoglobin A1c 7.2 H 4.5-5.6 % Medical Emergencies . Who to Call and When: Medical Emergencies: If at any time you feel your situation is an emergency, please call 911 immediately. . Non-Emergent Contact Non-Emergency issues call your: Primary Care Provider . . "Provider Documentation" section prepared by Mercedes Dave. . VTE Core Measure Inpt VTE Proph given/why not?: Unfractionated heparin SQ
--- NOTE | 2016-09-14 13:43 | Discharge Summary ---
Discharge Summary Date of Service Sep 14, 2016. Discharge Summary Admission Date: Sep 08, 2016 at 02:57 Discharge Date: Sep 14, 2016 Discharge Disposition: Home Principal Diagnosis: LOWER EXTREMITY CELLULITIS Procedures: CT lower extremity : IMPRESSION: 1. No evidence of acute fracture 2. No destructive lesions are visualized 3. No evidence of thigh hematoma 4. Mild subcutaneous edema ULTRASOUND LEFT VENOUS DOPP LOWER EXT UNILAT CLINICAL HISTORY: Left leg pain and swelling COMPARISON STUDY: 04/02/2012 FINDINGS: Real-time and color flow Doppler imaging were performed. Flow was seen within the femoral, popliteal and calf veins with no intraluminal thrombus demonstrated. The saphenous vein is patent. There is prominent pulsatility within the left common femoral vein. This could indicate elevated right heart pressures. IMPRESSION: No evidence of left lower extremity DVT. Consultations: PSYCHIATRY ORTHOPEDICS Medication Reconciliation New Medications: Clindamycin HCl (Clindamycin HCl) 150 Mg Cap 300 MG PO Q8 for 3 Days, #18 CAP Hydrocodone/Acetaminophen 10MG/325MG ([place] 10MG/325MG) Tab 1 TAB PO Q8 PRN for Pain, #14 TAB PRN PAIN Continued Medications: Atorvastatin (Lipitor) 20 Mg Tab 20 MG PO DAILY, TAB Bupropion Hcl (Wellbutrin Xl) 150 Mg Tab 150 MG PO DAILY for 30 Days, #30 TAB TOTAL DOSE 450 MG. Bupropion Hcl (Wellbutrin Xl) 300 Mg Tab 300 MG PO DAILY, TAB TOTAL DOSE 450 MG. Carvedilol (Coreg) 25 Mg Tab 25 MG PO BID, TAB Citalopram Hydrobromide (Celexa) 40 Mg Tab 40 MG PO DAILY, TAB Cyclobenzaprine Hcl (Flexeril) 10 Mg Tab 10 MG PO HS PRN for Muscle Spasms, #21 TAB Esomeprazole Magnesium (Nexium) 20 Mg Cap 20 MG PO DAILY, CAP Glimepiride (Glimepiride) 1 Mg Tab 1 MG PO QDB for 90 Days, #90 TAB 3 Refills Hydrocortisone Acetate (Rectal (Anusol-Hc) 25 Mg Sup 25 MG OK BID PRN for Hemorrhoids, #7 SUP Levothyroxine Sodium (Synthroid) 125 Mcg Tab 125 MCG PO DAILY, TAB Lisinopril (Lisinopril) 20 Mg Tab 20 MG PO DAILY Metformin Hcl (Glucophage) 500 Mg Tab 500 MG PO BID, TAB Torsemide (Demadex) 100 Mg Tab 100 MG PO QAM, TAB Admission Information HPI (per Admitting provider): This is a 51 year old obese male with a PMH of DM2, HTN, HLD, hypothyroidism, depression/anxiety - presents to the ER due to R lower extremity pain/burning; 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 He thought nothing of it, but then later developed redness, skin tightening, swelling and worsening pain. He presented to the ER; has never had this before; no skin cuts noted by the patient; no pus drainage. States he had some diarrhea Tuesday/ Tuesday (September 05-), but now improved. No fevers/chills. No shortness of breath/ fevers. Physical Exam (per Admitting): General Appearance: no apparent distress, + obese Head: normocephalic, atraumatic Eyes: normal inspection ENT: hearing grossly normal Respiratory/Chest: chest non-tender, lungs clear, normal breath sounds, no respiratory distress, no accessory muscle use Cardiovascular: regular rate, rhythm, no edema, no murmur Abdomen/GI: normal bowel sounds, non tender, soft Extremities/Musculoskelatal: + swelling, + pertinent finding (R lower extremity swelling; erythema below the knee to the ankle. edematous; skin tightening; mild tenderness to touch) Neurologic/Psych: no motor/sensory deficits, alert, normal mood/affect Skin: normal color Lymphatic: no adenopathy Hospital Course RLE Cellulitis: -patient nasal MRSA positive -was on Vancomycin for 3 days, switched to clindamycin day#4 discharge home with 3 more days of ( total #10 days ) -B/L LE dopplers are negative SEVERE LEFT THIGH PAIN: symptom has resolved -LE doppler negative for DVT -checked MINDI; normal 1.1 in both legs -started neurontin, dose titrating up -CT thigh shows no hematoma, mild soft tissue swelling but otherwise normal -CPK normal -Ortho consulted, appreciate recs -attempt to switch pain meds to po -increased activity KATI resolved -recent diarrhea; possible viral gastroenteritis -creatinine was up to 1.5 -IV fluids stopped as patient is taking in PO and BP improved -avoid nephrotoxic agents DM Type II: -insulin sliding scale while inpt -HbA1c: 7.2% HTN: -resume lisinopril -monitor BP Hypothyroidism: -continue Synthroid DVT Prophylaxis: -on subcutaneous heparin DISPOSITION discharge home today Follow up with Dr Epstein on September 21 @11: 05 am Total time spent on discharge = This includes examination of the patient, discharge planning, medication reconciliation, and communication with other providers. Discharge Instructions Discharge Instructions Date of Service Sep 14, 2016. Admission Reason for Admission: Cellulitis Discharge Discharge Diagnosis / Problem: LOWER EXTREMITY CELLULITIS Discharge Goals Goal(s): Decrease discomfort, Improve disease control Activity Recommendations Activity Limitations: resume your previous activity RETURN TO WORK ON FULL CAPACITY ON September . Instructions / Follow-Up Instructions / Follow-Up HOSPITAL FOLLOW UP WITH DR EPSTEIN ON September @ 11:[address] WHILE TAKING OXYCODONE \\ TAKE STOOL SOFTENER - IT CAN MAKE YOU CONSTIPATED DO NOT TAKE EXTRA TYLENOL WHILE TAKING OXYCODONE ( HAS TYLENOL IN IT ) Current Hospital Diet Patient's current hospital diet: Diabetes Type 2 Diet, Low Sodium Diet (2gm Na) Discharge Diet Recommended Diet: Low Sodium Diet (2gm Na), Diabetes Type 2 Diet Pending Studies Studies pending at discharge: no Laboratory Results Hemoglobin A1c Test 09/09/16 05:31 Range/Units Estimated Average Glucose 160 mg/dl Hemoglobin A1c 7.2 H 4.5-5.6 % Medical Emergencies . Who to Call and When: Medical Emergencies: If at any time you feel your situation is an emergency, please call 911 immediately. . Non-Emergent Contact Non-Emergency issues call your: Primary Care Provider . . "Provider Documentation" section prepared by Mercedes Dave. . VTE Core Measure Inpt VTE Proph given/why not?: Unfractionated heparin SQ Additional Copies To Feliberto Modi M.D.
[2016-09-14] MEDS ORDERED: CLX20 PO (13:48)
[2016-09-14] MEDS ORDERED: ZLF/100 PO (13:50)
[2016-09-14 14:11] VITALS: BP 130/79; PULSE 74; TEMP 36.9; O2SAT 96
== END 2016-09-14 15:11 | disposition home or self-care (01) | DRG 603 ==
LOC: C.EDB 00:25 → C.4E 02:57 → ENRESERV 03:49
PROVIDERS: ADMIT Family Medicine; ATTEND Internal Medicine
DX: L03.115 Cellulitis of right lower limb (principal); N17.9 Acute kidney failure, unspecified; Z68.42 Body mass index [BMI] 45.0-49.9, adult; M79.652 Pain in left thigh; F32.9 Major depressive disorder, single episode, unspecified; E11.9 Type 2 diabetes mellitus without complications; E78.5 Hyperlipidemia, unspecified; I10 Essential (primary) hypertension; M10.9 Gout, unspecified; E87.6 Hypokalemia; E03.9 Hypothyroidism, unspecified; F41.9 Anxiety disorder, unspecified; E66.9 Obesity, unspecified; Z79.84 Long term (current) use of oral hypoglycemic drugs; Z79.899 Other long term (current) drug therapy; Z87.891 Personal history of nicotine dependence